=== PATIENT | female | born 1965 | race Caucasian/White ===

== ENCOUNTER 2023-07-04 15:50 | Emergency (ER) | payer OTHER, SELFPAY ==
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
[2023-07-04 16:22] VITALS: BP 150/85; BP 163/103; PULSE 97; PULSE 98; RESP 18; TEMP 36.9; O2SAT 100; O2SAT 99; BMI 29.3
--- OUTSIDE RECORDS SUMMARY | 2023-07-04 16:57 | XMS_ITS | Continuity of Care Document ---
Author Organization [facility] Address [address] [place] [id number]- Care Team Providers Care Make Up Worker Name Role Phone Raya EFFICIENCY EXPERT, Mary Arthur Primary Care Physician Encounter [facility] Date(s): 04/18/20 - 05/18/20 [facility] [address] [place] [address]- Allergies, Adverse Reactions, Alerts Substance Reaction Severity Status aspirin ringing in ears Persistent Severe Active Vicodin vomits Persistent Severe Active Percocet 7.5/325 vomit Persistent Severe Active oxyCODONE Active Immunizations Given and Recorded Vaccine Date Status Refusal Reason influenza virus vaccine, inactivated 1 01/11/18 Gi geri influenza virus vaccine, inactivated 12/05/13 Give n influenza virus vaccine, inactivated 11/29/12 Give n influenza virus vaccine, inactivated 11/24/11 Give n Influenza Inactive (IM) (oldterm) 2 01/10/15 Recor ded tetanus/diphtheria/pertussis, acel(Tdap) 12/11/14 Given Tetanus-Diphth Toxoids, Adult (oldterm) 08/26/ G iven 1Admin Note: Declined 2Result Comment: [05/07/2015] [facility] CeleBREX 200 mg oral capsule 1 capsule = 200 mg, By Mouth, Daily, PRN for pain, # 30 capsule, 4 Refills, Maintenance, 02/05/20 8:17:00 EST, Capsule, [id number], Partial fill upon patient request, 174, cm, 02/05/20 7:47:00 EST, Height, 89.1, kg, 01/12/19 19:27:00 EDT, Dry... Start Date: 02/05/20 Stop Date: 07/04/20 Status: Ordered Centrum By Mouth, Daily, 0 Refills, Maintenance, 11/13/19 8:20:00 EDT Start Date: 11/13/19 Status: Ordered Diflucan 150 mg oral tablet 1 tablet = 150 mg, By Mouth, Once, If symptoms persist may repeat dose in 3 days, # 2 tablet, 1 Refills, Soft Stop, 04/18/20 16:54:00 EST, [facility]acy #[id number], Partial fill upon patient request if theprescription is for a schedule II opioid drug., 174... Start Date: 04/18/20 Status: Ordered Estrace Vaginal Cream 0.1 mg/g See Instructions, 1 Gm Vaginally Daily at bedtime x 1-2 weeks then 1 Gm 1-3 times per week, # 42.5 Gm, 5 Refills, Maintenance, 01/11/19 15:55:41 EDT Start Date: 01/11/19 Status: Ordered Estring 2 mg vaginal ring 1 each = 2 mg, Vaginally, Every 3 months, # 1 each, 0 Refills, Maintenance, 11/13/19 9:12:00 EDT, [id number], 174.5, cm, 11/13/19 8:16:00 EDT, Height, 89.1, kg, 01/12/19 19:27:00 EDT, Dry Weight Start Date: 11/13/19 Stop Date: 02/11/20 Status: Ordered levothyroxine 0.025 mg oral tablet 1 tablet = 25 mcg, By Mouth, Daily, # 90 tablet, 5 Refills, Maintenance, 11/13/19 14:24:00 EDT, Tablet, [facility]/pharm[facility] #[id number], 174.5, cm, 11/13/19 8:16:00 EDT, Height, 89.1, kg, 01/12/19 19:27:00 EDT, Dry Weight Start Date: 11/13/19 Status: Ordered Liletta 52 mg intrauteral device 1 each = 52 mg, Once, Inserted today 01/15/2016, 0 Refills, Maintenance, 01/15/16 11:33:21 Start Date: 01/15/16 Status: Ordered Vitamin C By Mouth, Daily, 0 Refills, Maintenance, 11/13/19 14:24:00 EDT Start Date: 11/13/19 Status: Ordered Problem List Condition Effective Dates Status Health Status Inform ant Endometriosis(Confirmed) Active Heart murmur(Confirmed) Active Hypothyroidism(Confirmed) Active Lumbar degenerative disc disease(Confirmed) 11/30/91 Active Tubular adenoma of colon(Confirmed) 12/02/11 Active Vulvar vestibulitis(Confirmed) Active Social History Social History Type Response Smoking Status Never smoker entered on: 10/29/13 Sex
--- OUTSIDE RECORDS SUMMARY | 2023-07-04 16:57 | XMS_ITS | Continuity of Care Document ---
Author Organization [facility] Address [address] [place] [address]- Care Team Providers Care Trench Shovel Operator Name Role Phone Raya LAYTON, Mary Arthur Primary Care Physician Encounter [facility] Date(s): 05/03/23 - 06/02/23 [facility] [address] [place] [address]- Attending Physician: Willam Sin Admitting Physician: AdmtrWillam Referring Physician: Admtr, Ar8 Allergies, Adverse Reactions, Alerts Substance Reaction Severity Status aspirin ringing in ears Persistent Severe Active Vicodin vomits Persistent Severe Active Percocet 7.5/325 vomit Persistent Severe Active fentaNYL causes severe ileus Active oxyCODONE vomiting Active Immunizations Given and Recorded Vaccine Date Status Refusal Reason SARS-CoV-2 (COVID-19) mRNA BNT-162b2 vac 08/03/20 Recorded SARS-CoV-2 (COVID-19) mRNA BNT-162b2 vac 07/13/20 Recorded influenza virus vaccine, inactivated 1 01/11/18 Gi geri influenza virus vaccine, inactivated 12/05/13 Give n influenza virus vaccine, inactivated 11/29/12 Give n influenza virus vaccine, inactivated 11/24/11 Give n Influenza Inactive (IM) (oldterm) 2 01/10/15 Recor ded tetanus/diphtheria/pertussis, acel(Tdap) 12/11/14 Given Tetanus-Diphth Toxoids, Adult (oldterm) 08/26/04 G iven 1Admin Note: Declined 2Result Comment: [05/07/2015] [facility] benzonatate 100 mg oral capsule 1 capsule = 100 mg, By Mouth, 3 times a day, PRN Cough, # 20 capsule, 0 Refills, Maintenance, 02/07/23 9:29:00 EST, [id number], Partial fill upon patient request if the prescription is for a schedule II opioid drug., 174, cm, 02/07/23 9:10:00... Start Date: 02/07/23 Status: Ordered CeleBREX 200 mg oral capsule 1 capsule = 200 mg, By Mouth, Daily, PRN for pain, # 30 capsule, 4 Refills, Maintenance, 02/05/20 8:17:00 EST, Capsule, [id number], Partial fill upon patient request, 174, cm, 02/05/20 7:47:00 EST, Height, 89.1, kg, 01/12/19 19:27:00 EDT, Dry... Start Date: 02/05/20 Stop Date: 07/04/20 Status: Ordered Centrum By Mouth, Daily, 0 Refills, Maintenance, 11/13/19 8:20:00 EDT Start Date: 11/13/19 Status: Ordered famotidine 40 mg oral tablet 1 tablet = 40 mg, By Mouth, Daily at bedtime, # 30 tablet, 11 Refills, Maintenance, 02/01/22 10:28:00 EST, Tablet, [id number], Partial fill upon patient request if the prescription is for a schedule II opioid drug., 173.2, cm, 02/01/22 10:12:0... Start Date: 02/01/22 Status: Ordered Flonase Allergy Relief 50 mcg/inh nasal spray 1 sprays, Nares, Both, Daily, # 16 Gm, 0 Refills, Maintenance, 02/07/23 9:29:00 EST, [id number], Partial fill upon patient request if the prescription is for a schedule II opioid drug., 174, cm, 02/07/23 9:10:00 EST, Height, 90.3, kg, 09/30/21... Start Date: 02/07/23 Status: Ordered ipratropium nasal 21 mcg/inh spray 2 sprays, Nares, Both, 3 times a day, PRN Nasal Congestion, # 30 mL, 5 Refills, Maintenance, 02/01/22 10:29:00 EST, [place], [id number], Partial fill upon patient request if the prescription isfor a schedule II opioid drug., 2 sprays Nares, Bot... Start Date: 02/01/22 Status: Ordered levothyroxine 0.025 mg oral tablet 1 tablet = 25 mcg, By Mouth, Daily, # 90 tablet, 3 Refills, Maintenance, 03/29/23 7:54:00 EST, Tablet, [facility]/pharmacy #[id number], 174, cm, 03/29/23 7:46:00 EST, Height, 90.3, kg, 09/30/21 15:06:00 EDT, Dry Weight Start Date: 03/29/23 Stop Date: 03/23/24 Status: Ordered PEG-3350 with Electrolytes (Eqv-GoLYTELY) oral powder for reconstitution See Instructions, 1 glass every 15-30 minutes until finished, # 4,000 mL, 0 Refills, Maintenance, 05/30/23 9:29:00 EDT, [facility]/pharmacy #[id number], Partial fill upon patient request if the prescription is for a schedule II opioid drug., 1 glass every 15-30 mi... Start Date: 05/30/23 Status: Ordered Sudafed 12-Hour 120 mg oral tablet, extended release 1 tablet = 120 mg, By Mouth, Every 12 hours, PRN as needed for congestion, # 10 tablet, 0 Refills, Maintenance, 02/07/23 9:29:00 EST, ER Tablet, [facility]/pharmacy #[id number], Partial fill upon patient request if the prescription is for a schedule II opioid drug... Start Date: 02/07/23 Status: Ordered Yuvafem 10 mcg vaginal tablet 1 tablet = 10 mcg, Vaginally, Daily at bedtime, 0 Refills, Maintenance, 10/12/21 15:56:00 EDT, Partial fill upon patient request if the prescription is for a schedule II opioid drug. Start Date: 10/12/21 Status: Ordered Problem List Condition Confirmation Course Effective Dates Status H ealth Status Informant Chronic cough Confirmed Active Endometriosis Confirmed Active Heart murmur Confirmed Active Hypothyroidism Confirmed Active Lumbar degenerative disc disease Confirmed 11/30/91 Active Right shoulder pain Confirmed Active Tubular adenoma of colon Confirmed 12/02/11 Active Vulvar vestibulitis Confirmed Active Social History Social History Type Response Smoking Status Never smoker entered on: 10/29/13 Sex Patient Care team information Care Team Personnel Name: Dori Mendez NP Position: [facility] Associate Professional Member Role: Primary Care Nurse Address: Address: [address] [facility] [place] [address]- [place] Name: Raya LAYTON, Mary Arthur Position: [facility] PCO Associate Professional Member Role: PCP Address: Address: [address] [facility] [place] [address]- Care Team Related Persons Name: GULILAUME GONSALVES Address: [address] [place] [address] Name: JENNIFER LAMA Name: RIKY WEAVER Address: [address] [place] [address]
--- OUTSIDE RECORDS SUMMARY | 2023-07-04 16:57 | XMS_ITS | Continuity of Care Document ---
Author Organization [facility] Address [address] [place] [id number]- Care Team Providers Care Biodiesel Plant Superintendent Name Role Phone Raya PLASTIC PRESS MOLDER, Mary Arthur Primary Care Physician Encounter [facility] [place] [place] Date(s): 02/02/21 - 04/01/21 [facility] [address] [place] [address]- Attending Physician: Mabel Rosa MD Admitting Physician: Shelley NUGENT, Mabel Referring Physician: Tico Biggs MD Allergies, Adverse Reactions, Alerts Substance Reaction Severity [...] Refills, Maintenance, 02/05/20 8:17:00 EST, Capsule, [id number], Partial fill upon patient request, 174, cm, 02/05/20 7:47:00 EST, Height, 89.1, kg, 01/12/19 19:27:00 EDT, Dry... Start Date: 02/05/20 Stop Date: 07/04/20 Status: Ordered Centrum By Mouth, Daily, 0 Refills, Maintenance, 11/13/19 8:20:00 EDT Start Date: 11/13/19 Status: Ordered levothyroxine 0.025 mg oral tablet 1 tablet = 25 mcg, By Mouth, Daily, # 90 tablet, 4 Refills, Maintenance, 02/13/21 16:15:00 EST, Tablet, [facility]/pharmacy #[id number], 175.26, cm, 02/10/21 10:55:00 EST, Height, 99, kg, 12/08/20 23:29:00 EDT, Dry Weight Start Date: 02/13/21 Status: Ordered Liletta 52 mg intrauteral device 1 each = 52 mg, Once, Inserted today 01/15/2016, 0 Refills, Maintenance, 01/15/16 11:33:21 Start Date: 01/15/16 Status: Ordered tiZANidine 2 mg oral tablet 2 mg, 1, tablet, By Mouth, Daily at bedtime, PRN, PRN spasm, # 30 tablet, Refills 0, Tot. Refills 0, Maintenance, as needed for muscle spasm, 01/09/21 7:45:00 EDT, Route to Pharmacy Electronically, [facility]/pharmacy #[id number], Partial fill upon patient request... Start Date: 01/09/21 Stop Date: 02/08/21 Status: Ordered Problem List Condition Effective Dates Status Health Status Inform ant Cough(Confirmed) Active Endometriosis(Confirmed) Active Heart murmur(Confirmed) Active Hypothyroidism(Confirmed) Active Lumbar degenerative disc disease(Confirmed) 11/30/91 Active Obese class I(Confirmed) Active Right shoulder pain(Confirmed) Active Tubular adenoma of colon(Confirmed) 12/02/11 Active Vulvar vestibulitis(Confirmed) Active Social History Social History Type Response Smoking Status Never smoker entered on: 10/29/13 Sex
--- OUTSIDE RECORDS SUMMARY | 2023-07-04 16:58 | XMS_ITS | Continuity of Care Document ---
Author Organization [facility] Address [address], 4[address] [place] [address]- Care Team Providers Care Meat Press Operator Name Role Phone Raya SAFETY PATROL OFFICER, Mary Arthur Primary Care Physician Encounter [facility] [place] Date(s): 11/13/19 - 11/20/19 [facility] [address], 4th [address] [place] [address]- [facility] Attending Physician: Lizeth Kim MD Allergies, Adverse Reactions, Alerts Substance Reaction [...] By Mouth, Daily, PRN for pain, # 10 capsule, 0 Refills, Maintenance, 09/07/19 15:13:00 EDT, Capsule Start Date: 09/07/19 Status: Ordered Centrum By Mouth, Daily, 0 Refills, Maintenance, 11/13/19 8:20:00 EDT Start Date: 11/13/19 Status: Ordered Estrace Vaginal Cream 0.1 mg/g [...] 5 Refills, Maintenance, 11/13/19 14:24:00 EDT, Tablet, [facility]/pharmacy #[id number], 174.5, cm, 11/13/19 8:16:00 EDT, Height, [...] of colon(Confirmed) 12/02/11 Active Vulvar vestibulitis(Confirmed) Active Vital Signs Most recent to oldest [Reference Range]: 1 Height 174.5 cm (11/13/19 8:16 AM) Weight 93.7 kg (11/13/19 8:16 AM) Pulse Rate [55-90 bpm] 80 bpm (11/13/19 8:16 AM) Body Mass Index [18.5-24.99] 30.77 *>HHI* (11/13/19 8:16 AM) Blood Pressure [90-138/55-84 mm Hg] 128/ 85mm Hg (11/13/19 8:16 AM) Blood pressure sites Arm, right (11/13/19 8:16 AM) Social History Social History Type Response Smoking Status Never smoker entered on: 10/29/13 Sex
--- OUTSIDE RECORDS SUMMARY | 2023-07-04 16:58 | XMS_ITS | Continuity of Care Document ---
Author Organization [facility] Address [address] [place] [address]- Care Team Providers Care Governor Assembler Hydraulic Name Role Phone Raya EGG GRADER, Mary Arthur Primary Care Physician En[place] [facility] [place] Date(s): 07/10/20 - 08/09/20 [facility] [address] [place] [address]- Attending Physician: Admtr, Ar8 Allergies, Adverse Reactions, Alerts [...] Refills, Maintenance, 02/05/20 8:17:00 EST, Capsule, [id number], Partial fill upon patient request, 174, cm, [...] 15:55:41 EDT Start Date: 01/11/19 Status: Ordered levothyroxine 0.025 mg oral tablet 1 tablet = 25 mcg, By Mouth, Daily, # 90 tablet, 5 Refills, Maintenance, 11/13/19 14:24:00 EDT, Tablet, [facility]/pharmacy #[id number], 174.5, cm, 11/13/19 8:16:00 EDT, [...]
--- OUTSIDE RECORDS SUMMARY | 2023-07-04 16:58 | XMS_ITS | Continuity of Care Document ---
Author Organization [facility] Address [address] [place] [address]- Care Team Providers Care Cableman Name Role Phone Raya LAYTON, Mary Arthur Primary Care Physician En[place] [facility] [place] Date(s): 11/20/20 - 11/27/20 [facility] [address] [place] [address]- Encounter Diagnosis Hypothyroidism(Discharge Diagnosis) - 11/20/20 Cervical stenosis of spine(Discharge Diagnosis) - 11/20/20 Attending Physician: Jaspreet Jacinto MD Referring Physician: Tico Biggs MD Allergies, Adverse Reactions, Alerts Substance Reaction Severity Status aspirin ringing in ears Persistent Severe Active Vicodin vomits Persistent Severe Active Percocet 7.5/325 vomit Persistent Severe Active fentaNYL Active oxyCODONE Active Immunizations Given and Recorded [...] 4 Refills, Maintenance, 02/05/20 8:17:00 EST, Capsule, [facility]/pharmacy #[id number], Partial fill upon patient request, 174, cm, [...] mcg, By Mouth, Daily, # 90 tablet, 0 Refills, Maintenance, 11/21/20 7:39:00 EDT, Tablet, [facility]/pharmacy #[id number], 174, cm, 11/20/20 7:16:00 EDT, Height, 89.1, kg, 01/12/19 19:27:00 EDT, Dry Weight Start Date: 11/21/20 Status: Ordered Liletta 52 mg intrauteral device 1 each = 52 mg, Once, Inserted today 01/15/2016, 0 Refills, Maintenance, 01/15/16 11:33:21 Start Date: 01/15/16 Status: Ordered Problem List Condition Effective Dates Status Health Status Inform ant Endometriosis(Confirmed) Active Heart murmur(Confirmed) Active Hypothyroidism(Confirmed) Active Lumbar degenerative disc disease(Confirmed) 11/30/91 Active Tubular adenoma of colon(Confirmed) 12/02/11 Active Vulvar vestibulitis(Confirmed) Active Diagnosis Diagnosis Type Effective Dates Health Status Clinical Service Informant Hypothyroidism Discharge Diagnosis 11/20/20 Cervical stenosis of spine Discharge Diagnosis 11/20/20 Vital Signs Most recent to oldest [Reference Range]: 1 Height 174 cm (11/20/20 7:16 AM) Weight 99 kg (11/20/20 7:16 AM) Oxygen Saturation [94-100 %] 98 % (11/20/20 7:16 AM) Pulse Rate [55-90 bpm] 75 bpm (11/20/20 7:16 AM) Body Mass Index [18.5-24.99] 32.7 *>HHI* (11/20/20 7:16 AM) Blood Pressure [90-138/55-84 mm Hg] 115/ 84mm Hg (11/20/20 7:16 AM) Mode of Delivery (Oxygen) Room air (11/20/20 7:16 AM) Blood pressure sites Arm, left (11/20/20 7:16 AM) Weight Obtained Via Standing scale (11/20/20 7:16 AM) Social History Social History Type Response Smoking Status Never smoker entered on: 10/29/13 Sex
--- OUTSIDE RECORDS SUMMARY | 2023-07-04 16:58 | XMS_ITS | Continuity of Care Document ---
Author Organization [facility] Address [address], 4t [address] [place] [address]- Care Team Providers Care Design Quality Engineer Name Role Phone Raya LAYTON, Mary Arthur Primary Care Physician Encounter [facility] [place] Date(s): 12/08/21 - 12/15/21 [facility] [address], 4th [address] [place] [address]- Attending Physician: Lizeth Kim MD Allergies, Adverse [...] Daily, # 90 tablet, 4 Refills, Maintenance, 12/08/21 9:25:00 EDT, Tablet, [facility]/pharmacy #[id number], 173.2, cm, 12/08/21 9:15:00 EDT, Height, 90.3, kg, 09/30/21 15:06:00 EDT, Dry Weight Start Date: 12/08/21 Status: Ordered Liletta 52 mg intrauteral device 1 each = 52 mg, Once, Inserted today 01/15/2016, 0 Refills, Maintenance, 01/15/16 11:33:21 Start Date: 01/15/16 Status: Ordered Yuvafem 10 mcg vaginal tablet 1 tablet = 10 mcg, Vaginally, Daily at bedtime, 0 Refills, Maintenance, 10/12/21 15:56:00 EDT, Partial fill upon patient request if the prescription is for a schedule II opioid drug. Start Date: 10/12/21 Status: Ordered Yuvafem 10 mcg vaginal tablet 1 tablet = 10 mcg, Vaginally, Every Tuesday and , # 24 tablet, 6 Refills, Maintenance, 12/08/21 9:20:00 EDT, [id number], Partial fill upon patient request if the prescription is for a schedule II opioid drug., 173.2, cm, 12/08/21 9:15:0... Start Date: 12/08/21 Status: Ordered Problem List Condition Confirmation Course Effective Dates Status H ealth Status Informant Cough Confirmed Active Endometriosis Confirmed Active Heart murmur Confirmed Active Hypothyroidism Confirmed Active Lumbar degenerative disc disease Confirmed 11/30/91 Active Right shoulder pain Confirmed Active Tubular adenoma of colon Confirmed 12/02/11 Active Vulvar vestibulitis Confirmed Active Vital Signs Most recent to oldest [Reference Range]: 1 Height 173.2 cm (12/08/21 9:15 AM) Weight 86.5 kg (12/08/21 9:15 AM) Pulse Rate [55-90 bpm] 73 bpm (12/08/21 9:15 AM) Body Mass Index [18.5-24.99 kg/m2] 28.84 kg/m2 *H* (12/08/21 9:15 AM) Diastolic Blood Pressure [55-84 mm Hg] 7 8 mm Hg (12/08/21 9:15 AM) Blood pressure sites Arm, right (12/08/21 9:15 AM) Social History Social History Type Response Smoking Status Never smoker entered on: 10/29/13 Sex Patient Care team information Personnel Name: Raya LAYTON, Mary Arthur Address: [address] [place], [place] [address]
--- OUTSIDE RECORDS SUMMARY | 2023-07-04 16:58 | XMS_ITS | Continuity of Care Document ---
Author Organization [facility] Address [address] [place] [address]- Care Team Providers Care Sidehand Name Role Phone aRya SYSTEMATIC THEOLOGY PROFESSOR, Mary Arthur Primary Care Physician En[place] [facility] [place] Date(s): 08/03/21 - 09/02/21 [facility] [address] [place], [place] [address] Allergies, Adverse Reactions, Alerts Substance Reaction Severity Status aspirin ringing in ears Persistent Severe Active Vicodin vomits Persistent Severe Active Percocet 7.5/325 vomit Persistent Severe Active oxyCODONE vomiting Active fentaNYL causes severe ileus Active Immunizations Given and Recorded Vaccine Date [...] Status: Ordered Diflucan 150 mg oral tablet See Instructions, 1 tablet By Mouth Once, repeat on day 3 and day 7., # 3 tablet, 0 Refills, Soft Stop, 08/16/21 15:26:00 EDT, Tablet, [facility]/pharmacy #[id number], Partial fill upon patient request if the prescription is for a schedule II opioid drug., 175, cm... Start Date: 08/16/21 Status: Ordered levothyroxine 0.025 mg oral tablet 1 tablet = 25 mcg, By Mouth, Daily, # 90 tablet, 4 Refills, Maintenance, 02/13/21 16:15:00 EST, Tablet, [facility]/pharmacy #[id number], 175.26, cm, 02/10/21 10:55:00 EST, Height, 99, kg, 12/08/20 23:29:00 EDT, Dry Weight Start Date: 02/13/21 Status: Ordered Liletta 52 mg intrauteral device 1 each = 52 mg, Once, Inserted today 01/15/2016, 0 Refills, Maintenance, 01/15/16 11:33:21 Start Date: 01/15/16 Status: Ordered omeprazole 20 mg oral enteric coated capsule 1 capsule = 20 mg, By Mouth, Daily at supper, # 30 capsule, 3 Refills, Maintenance, 04/20/21 10:35:00 EST, EC Capsule, [facility]/pharmacy #[id number], Partial fill upon patient request if the prescription is fora schedule II opioid drug., 175, cm, 04/20/21 10:05... Start Date: 04/20/21 Status: Ordered tiZANidine 2 mg oral tablet 2 mg, 1, tablet, By Mouth, Daily at bedtime, PRN, PRN spasm, # 30 tablet, Refills 0, Tot. Refills 0, Maintenance, as needed for muscle spasm, 01/09/21 7:45:00 EDT, Route to Pharmacy Electronically, [facility]/pharmacy #[id number], Partial fill upon patient request... Start Date: 01/09/21 Stop Date: 02/08/21 Status: Ordered Vagifem 10 mcg vaginal tablet 1 tablet = 10 mcg, Vaginally, Daily at bedtime, Insert one tablet daily x 2 weeks then twice weekly, # 18 tablet, 11 Refills, Maintenance, 07/01/21 16:26:00 EDT, [facility]/pharmacy #[id number], Partial fill uponpatient request if the prescription is for a schedu... Start Date: 07/01/21 Stop Date: 06/26/22 Status: Ordered Problem List Condition Effective Dates [...]
--- OUTSIDE RECORDS SUMMARY | 2023-07-04 16:58 | XMS_ITS | Continuity of Care Document ---
Author Organization [facility] Address [address], [address] [place] [address]- Care Team Providers Care Infrastructure Tech Name Role Phone Raya SR SOLUTIONS CONSULTANT, Mary Arthur Primary Care Physician [place] [facility] [place] - 04/02/22 [employer] [employer] [facility] [employer] [facility] [address], 4th [place] [address]- Attending Physician: Willam Sin Admitting Physician: Willam Sin Referring Physician: AdmtrWillam Allergies, Adverse Reactions, Alerts Substance Reaction Severity [...] influenza virus vaccine, inactivated 1 01/11/18 Gi egri influenza virus vaccine, inactivated 12/05/13 Give n [...] 02/01/22 10:12:0... Start Date: 02/01/22 Status: Ordered ipratropium nasal 21 mcg/inh spray 2 sprays, Nares, Both, 3 times a day, PRN Nasal Congestion, # 30 mL, 5 Refills, Maintenance, 02/01/22 10:29:00 EST, [place], [id number], Partial fill upon patient request if the prescription isfor a schedule II opioid drug., 2 sprays Nares, Bot... Start Date: 02/01/22 Status: Ordered levothyroxine 0.025 mg oral tablet 1 tablet = 25 mcg, By Mouth, Daily, # 90 tablet, 4 Refills, Maintenance, 12/08/21 9:25:00 EDT, Tablet, [id number], 173.2, cm, 12/08/21 9:15:00 EDT, Height, 90.3, kg, 09/30/21 15:06:00 EDT, Dry Weight Start Date: 12/08/21 Status: Ordered Yuvafem 10 mcg vaginal tablet [...] Team Personnel Name: Dori Mendez NP Position: [facility] Associate Professional Member Role: Primary Care Nurse Address: Address: [address] [place] [address] Trauma [place] [address]- Name: Mary Dos Santos NP Position: [facility] PCO Associate Professional Member Role: PCP Address: Address: [address] [place] [address] 3rd [place] [address]- Care Team Related Persons Name: GUILLAUME GONSALVES Address: home [address] [place] [address] Name: JENNIFER LAMA Name: RIKY WEAVER Address: home [address] [place] [address]
--- OUTSIDE RECORDS SUMMARY | 2023-07-04 16:58 | XMS_ITS | Continuity of Care Document ---
Author Organization [facility] Address [address] [place] [address], [address] [address]- Care Team Providers Care Scientific Process Operator Name Role Phone Raya LAYTON, Mary Arthur Primary Care Physician Encounter [facility] [place] Date(s): 08/19/21 - 09/18/21 [facility] [employer] [facility] [address], 4th [place] [address]- Attending Physician: Admtr, Wilbert8 Admitting Physician: Admtr, Ar8 Referring Physician: Admtr, Ar8 Allergies, Adverse Reactions, [...] Refills, Soft Stop, 08/16/21 15:26:00 EDT, Tablet, [facility]/pharmacy #[id number], Partial fill upon patient request if the prescription is for a schedule II opioid drug., 175, cm... Start Date: 08/16/21 Status: Ordered levothyroxine 0.025 mg oral tablet 1 tablet = 25 mcg, By Mouth, Daily, # 90 tablet, 4 Refills, Maintenance, 02/13/21 16:15:00 EST, Tablet, [facility]/pharmacy #[id number], 175.26, cm, 02/10/21 10:55:00 EST, Height, [...] Refills, Maintenance, 04/20/21 10:35:00 EST, EC Capsule, [facility]/pharmacy #[id number], Partial fill upon patient request if the prescription is fora schedule II opioid drug., 175, cm, 04/20/21 10:05... Start Date: 04/20/21 Status: Ordered tiZANidine 2 mg oral tablet 2 mg, 1, tablet, By Mouth, Daily at bedtime, PRN, PRN spasm, # 30 tablet, Refills 0, Tot. Refills 0, Maintenance, as needed for muscle spasm, 01/09/21 7:45:00 EDT, Route to Pharmacy Electronically, [facility]/pharmacy #[id number], Partial fill upon patient request... Start Date: 01/09/21 Stop Date: 02/08/21 Status: Ordered Vagifem 10 mcg vaginal tablet 1 tablet = 10 mcg, Vaginally, Daily at bedtime, Insert one tablet daily x 2 weeks then twice weekly, # 18 tablet, 11 Refills, Maintenance, 07/01/21 16:26:00 EDT, [facility]/pharmacy #[id number], Partial fill uponpatient request if the prescription [...]
--- OUTSIDE RECORDS SUMMARY | 2023-07-04 16:58 | XMS_ITS | Continuity of Care Document ---
Author Organization [facility] Address [address] [place] [address]- Care Team Providers Care Commercial Banker Name Role Phone Raya LAYTON, Mary Arthur Primary Care Physician Encounter [facility] [place] Date(s): 06/24/20 - 07/24/20 [facility] [address] [place] [address]- Allergies, Adverse Reactions, Alerts Substance Reaction Severity [...] Refills, Maintenance, 02/05/20 8:17:00 EST, [facility]aps[facility], [id number], Partial fill upon patient request, 174, cm, [...] 5 Refills, Maintenance, 11/13/19 14:24:00 EDT, Tablet, [id number], 174.5, cm, 11/13/19 8:16:00 EDT, [...]
--- OUTSIDE RECORDS SUMMARY | 2023-07-04 16:58 | XMS_ITS | Continuity of Care Document ---
Author Organization [facility] Address [address] [place] [address]- Care Team Providers Care Financial Systems Manager Name Role Phone Raya LAYTON, Mary Arthur Primary Care Physician En[place] [facility] [place] Date(s): 06/22/20 - 07/22/20 [facility] [address] [place] [address]- Attending Physician: Willam Sin Admitting Physician: Willam [...] Refills, Maintenance, 02/05/20 8:17:00 EST, [place], [id number], Partial fill upon patient request, 174, cm, [...] 5 Refills, Maintenance, 11/13/19 14:24:00 EDT, Tablet, [facility]/pharmacy #[id number], 174.5, cm, 11/13/19 8:16:00 [...]
--- OUTSIDE RECORDS SUMMARY | 2023-07-04 16:58 | XMS_ITS | Continuity of Care Document ---
Author Organization [facility] Address [address] [place], [place] [address]marylin mcdonald, [address] [place] [address]- Care Team Providers Care Meat Trimmer Name Role Phone Raya ICE CUTTER, Mary Arthur Primary Care Physician Encounter [facility] [place] Date(s): 11/18/20 - 11/25/20 [facility] [address] [place] [address] Drive, [address] [place] [address]- Attending Physician: Tico Biggs MD Allergies, Adverse Reactions, [...] 0 Refills, Maintenance, 11/21/20 7:39:00 EDT, Tablet, [facility]/pharmacy #[id number], 174, cm, 11/20/20 7:16:00 [...] oldest [Reference Range]: 1 Height 174 cm (11/18/20 8:52 AM) Weight 95.5 kg (11/18/20 8:52 AM) Body Mass Index [18.5-24.99] 31.54 *>HHI* (11/18/20 8:52 AM) Social History Social History Type Response Smoking Status Never smoker entered on: 10/29/13 Sex
--- OUTSIDE RECORDS SUMMARY | 2023-07-04 16:58 | XMS_ITS | Continuity of Care Document ---
Author Organization [facility] Address Unknown Care Team Providers Care Director Hardware Name Role Phone Raya LAYTON, Mary Arthur Primary Care Physician [place] [facility] [place] 02/13/21 - 03/15/21 [facility] Allergies, Adverse Reactions, Alerts Substance Reaction Severity [...] Refills, Maintenance, 02/05/20 8:17:00 EST, [facility], [id number], Partial fill upon patient request, 174, cm, 02/05/20 7:47:00 EST, Height, 89.1, kg, 01/12/19 19:27:00 EDT, Dry... Start Date: 02/05/20 Stop Date: 07/04/20 Status: Ordered Centrum By Mouth, Daily, 0 Refills, Maintenance, 11/13/19 8:20:00 EDT Start Date: 11/13/19 Status: Ordered levothyroxine 0.025 mg oral tablet 1 tablet = 25 mcg, By Mouth, Daily, # 90 tablet, 4 Refills, Maintenance, 02/13/21 16:15:00 EST, Tablet, [facility]/pharmacy #[id number], 175.26, cm, 02/10/21 10:55:00 EST, Height, 99, [...] 01/09/21 7:45:00 EDT, Route to Pharmacy Electronically, [facility]/pharmacy #[id number], Partial fill upon patient request... Start Date: [...]
--- OUTSIDE RECORDS SUMMARY | 2023-07-04 16:58 | XMS_ITS | Continuity of Care Document ---
Author Organization [facility] Address [address] [place] [address]- Care Team Providers Care Global Upstream Marketing Manager Name Role Phone Raya LAYTON, Mary Arthur Primary Care Physician En[facility] [place] Date(s): 09/03/22 - 10/03/22 [facility] [address] [place] [address]- Attending Physician: Willam Sin Admitting Physician: AdmtrWillam [...] 4 Refills, Maintenance, 02/05/20 8:17:00 EST, Capsule, [facility]/pharmacy #[id number], Partial fill upon patient request, 174, [...] 11 Refills, Maintenance, 02/01/22 10:28:00 EST, Tablet, [facility]/pharmacy #[id number], Partial fill upon patient request if the prescription is for a schedule II opioid drug., 173.2, cm, 02/01/22 10:12:0... Start Date: 02/01/22 Status: Ordered fluconazole 150 mg oral tablet 1 tablet = 150 mg, By Mouth, Once, # 1 tablet, 0 Refills, Soft Stop, 09/03/22 9:39:00 EDT, Tablet, [facility]/pharmacy #[id number], Partial fill upon patient request if the prescription is for a schedule II opioid drug., 174, cm, 09/03/22 9:19:00 EDT, Height, 90.3... Start Date: 09/03/22 Status: Ordered ipratropium nasal 21 mcg/inh spray 2 sprays, Nares, Both, 3 times a day, PRN Nasal Congestion, # 30 mL, 5 Refills, Maintenance, 02/01/22 10:29:00 EST, [place], [facility]/pharmacy #[id number], Partial fill upon patient request if the prescription isfor a schedule II opioid drug., 2 sprays Nares, Bot... Start Date: 02/01/22 Status: Ordered levothyroxine 0.025 mg oral tablet 1 tablet = 25 mcg, By Mouth, Daily, # 90 tablet, 4 Refills, Maintenance, 12/08/21 9:25:00 EDT, Tablet, [facility]/pharmacy #[id number], 173.2, cm, 12/08/21 9:15:00 EDT, Height, [...] Team Personnel Name: Dori Mendez NP Position: [facility] Associate Professional Member Role: Primary Care Nurse Address: Address: [address] [place] [address] Trauma and [place] [address]- Name: Mary Dos Santos NP Position: [facility] PCO Associate Professional Member Role: PCP Address: Address: [address] [place] [address] 3rd [place] [address]- Care Team Related Persons Name: GUILLAUME GONSALVES Address: home [address] [place] [address] Name: JENNIFER LAMA Name: RIKY WEAVER Address: [address] [place] [address]
--- OUTSIDE RECORDS SUMMARY | 2023-07-04 16:58 | XMS_ITS | Continuity of Care Document ---
Author Organization [facility] Address [address] [place] [address]- Care Team Providers Care Obstetric Assistant Name Role Phone Raya LAYTON, Mary Arthur Primary Care Physician [place] [facility] [place] - 06/09/[address] [address]- Encounter Diagnosis Mixed incontinence(Final) - Discharge Disposition: A-D/C Home Attending Physician: Ryan Tucker MD Admitting Physician: Not on Staff, Admitting MD Referring Physician: Ryan Tucker MD Allergies, Adverse Reactions, Alerts Substance Reaction [...] mL, 5 Refills, Maintenance, 02/01/22 10:29:00 EST, [place], [id number], Partial fill upon patient request if the prescription isfor a schedule II opioid drug., 2 sprays Nares, Bot... Start Date: 02/01/22 Status: Ordered levothyroxine 0.025 mg oral tablet 1 tablet = 25 mcg, By Mouth, Daily, # 90 tablet, 3 Refills, Maintenance, 03/29/23 7:54:00 EST, Tablet, [facility]/pharmacy #[id number], 174, cm, 03/29/23 7:46:00 EST, Height, 90.3, kg, 09/30/21 15:06:00 EDT, Dry Weight Start Date: 03/29/23 Stop Date: 03/23/24 Status: Ordered PEG-3350 with Electrolytes (Eqv-GoLYTELY) oral powder for reconstitution See Instructions, 1 glass every 15-30 minutes until finished, # 4,000 mL, 0 Refills, Maintenance, 05/30/23 9:29:00 EDT, [facility]/pharmacy #[id number], Partial fill upon patient request if the prescription is for a schedule II opioid drug., 1 glass every 15-30 mi... Start Date: 05/30/23 Status: Ordered Sudafed 12-Hour 120 mg oral tablet, extended release 1 tablet = 120 mg, By Mouth, Every 12 hours, PRN as needed for congestion, # 10 tablet, 0 Refills, Maintenance, 02/07/23 9:29:00 EST, [place] Tablet, [facility]/pharmacy #[id number], Partial fill upon patient request if [...] Response Smoking Status Never smoker entered on: 8/18/14 Sex Patient Care team information Care Team Personnel Name: Dori Mendez NP Position: [facility] Associate Professional Member Role: Primary Care Nurse Address: Address: [address] [place] [address] Trauma and [place] [address]- [place] Name: Mary Dos Santos NP Position: [facility] PCO Associate Professional Member Role: PCP Address: Address: [address] [place] [address] [address]rd [place] [address]- Care Team Related Persons Name: GUILLAUME GONSALVES Address: [address] [place] [address] Name: JENNIFER LAMA Name: RIKY WEAVER Address: [address] [place] [address]
--- OUTSIDE RECORDS SUMMARY | 2023-07-04 16:58 | XMS_ITS | Continuity of Care Document ---
Author Organization [facility] Adult Address [address] [place] [address]- Care Team Providers Care Cat Scan Technologist Name Role Phone Raya GANG HEAD SAW OPERATOR, Mary Arthur Primary Care Physician [place] [facility] [place] - 05/18/[address] [facility] [address] [place] [address]- Referring Physician: Lorna Patel Allergies, Adverse Reactions, Alerts Substance Reaction Severity [...] Refills, Maintenance, 02/05/20 8:17:00 EST, C[facility], [id number], Partial fill upon patient request, 174, cm, [...] 1 Refills, Soft Stop, 04/18/20 16:54:00 EST, [facility]/pharmacy #[id number], Partial fill upon patient request if [...] each, 0 Refills, Maintenance, 11/13/19 9:12:00 EDT, [facility]/pharmacy #[id number], 174.5, cm, 11/13/19 8:16:00 EDT, Height, 89.1, kg, 01/12/19 19:27:00 EDT, Dry Weight Start Date: 11/13/19 Stop Date: 02/11/20 Status: Ordered levothyroxine 0.025 mg oral tablet 1 tablet = 25 mcg, By Mouth, Daily, # 90 tablet, 5 Refills, Maintenance, 11/13/19 14:24:00 EDT, Tablet, [facility]/pharmacy #[id number], 174.5, cm, 11/13/19 8:16:00 EDT, Height, [...]
--- OUTSIDE RECORDS SUMMARY | 2023-07-04 16:58 | XMS_ITS | Continuity of Care Document ---
Author Organization [facility] Address [address] [place], [place] [address]marylin mcdonald, [address] [place] [address]- Care Team Providers Care Technical Proposal Writer Name Role Phone Raya COST ESTIMATING MANAGER, Mary Arthur Primary Care Physician [place] [facility] [place] - 03/01/21 [facility] [address] [place] [address] Drive, [address] [place] [address]- Allergies, Adverse Reactions, Alerts Substance Reaction Severity [...] Refills, Maintenance, 02/05/20 8:17:00 EST, Capsule, [id number], Partial fill upon patient request, 174, cm, [...]
--- OUTSIDE RECORDS SUMMARY | 2023-07-04 16:58 | XMS_ITS | Continuity of Care Document ---
Author Organization [facility] Address [address] [place] [address]- Care Team Providers Care Thermodynamics Professor Name Role Phone Raya LAYTON, Mary Arthur Primary Care Physician [place] [facility] [place] - 10/17/19 [facility] [address] [place] [address]- [facility] Allergies, Adverse Reactions, Alerts Substance Reaction Severity [...] EDT, Capsule Start Date: 09/07/19 Status: Ordered Estrace Vaginal Cream 0.1 mg/g See Instructions, 1 Gm Vaginally Daily at bedtime x 1-2 weeks then 1 Gm 1-3 times per week, # 42.5 Gm, 5 Refills, Maintenance, 01/11/19 15:55:41 EDT Start Date: 01/11/19 Status: Ordered fluconazole 150 mg oral tablet 1 tablet = 150 mg, By Mouth, Once, for symptoms of yeast infection, # 1 tablet, 0 Refills, Soft Stop, 05/25/19 12:07:00 EDT, Tablet, [id number], 174.5, cm, 03/02/19 16:21:00 EST, Height, 89.1, kg, 01/12/19 19:27:00 EDT, Dry Weight Start Date: 05/25/19 Status: Ordered levothyroxine 0.025 mg oral tablet 1 tablet = 25 mcg, By Mouth, Daily, # 90 tablet, 4 Refills, Maintenance, 10/05/18 9:24:30 EDT Start Date: 10/05/18 Stop Date: 12/29/19 Status: Ordered Liletta 52 mg intrauteral device [...]
--- OUTSIDE RECORDS SUMMARY | 2023-07-04 16:58 | XMS_ITS | Continuity of Care Document ---
Author Organization [facility] Address [address] [place], [place] [address]marylin mcdonald, [address] [place] [address]- Care Team Providers Care Relations Liaison Name Role Phone Raya MANAGER GRANT, Mary Arthur Primary Care Physician [place] [facility] [place] [facility] [place]25[place]20 - 12/25/20 [facility] [address] [place] [address] Drive, [address] [place] [address]- Allergies, Adverse Reactions, Alerts Substance Reaction Severity [...] Refills, Maintenance, 02/05/20 8:17:00 EST, Capsule, [id number], Partial fill upon patient request, 174, cm, 02/05/20 7:47:00 EST, Height, 89.1, kg, 01/12/19 19:27:00 EDT, Dry... Start Date: 02/05/20 Stop Date: 07/04/20 Status: Ordered Centrum By Mouth, Daily, 0 Refills, Maintenance, 11/13/19 8:20:00 EDT Start Date: 11/13/19 Status: Ordered levothyroxine 0.025 mg oral tablet 1 tablet = 25 mcg, By Mouth, Daily, # 90 tablet, 0 Refills, Maintenance, 11/21/20 7:39:00 EDT, Tablet, [facility]/pharmacy #[id number], 174, cm, 11/20/20 7:16:00 EDT, Height, 89.1, kg, 01/12/19 19:27:00 EDT, Dry Weight Start Date: 11/21/20 Status: Ordered Liletta 52 mg intrauteral device 1 each = 52 mg, Once, Inserted today 01/15/2016, 0 Refills, Maintenance, 01/15/16 11:33:21 Start Date: 01/15/16 Status: Ordered tiZANidine 2 mg oral tablet 2 mg, 1, tablet, By Mouth, Every 8 hours, PRN, PRN spasm, # 21 tablet, Refills 0, Tot. Refills 0, Maintenance, as needed for muscle spasm, 12/09/20 8:47:00 EDT, Print Requisition, Partial fill upon patient request if the prescription is for a schedule... Start Date: 12/09/20 Stop Date: 12/16/20 Status: Ordered Problem List Condition Effective Dates Status Health Status Inform ant Endometriosis(Confirmed) Active Heart murmur(Confirmed) Active Hypothyroidism(Confirmed) Active Lumbar degenerative disc disease(Confirmed) 11/30/91 Active Tubular adenoma of colon(Confirmed) 12/02/11 Active Vulvar vestibulitis(Confirmed) Active Social History Social History Type Response Smoking Status Never smoker entered on: 10/29/13 Sex
--- OUTSIDE RECORDS SUMMARY | 2023-07-04 16:58 | XMS_ITS | Continuity of Care Document ---
Author Organization [facility] Address [address] [place] [address]- Care Team Providers Care Conservation Engineer Name Role Phone Raya RESTAURANT HOURLY MANAGER, Mary Arhtur Primary Care Physician Encounter [facility] Date(s): 01/12/21 - 02/11/[address] [address]- Allergies, Adverse Reactions, Alerts Substance Reaction Severity [...] Refills, Maintenance, 02/05/20 8:17:00 EST, Capsule, [id number], Partial fill upon patient request, 174, cm, 02/05/20 7:47:00 EST, Height, 89.1, kg, 01/12/19 19:27:00 EDT, Dry... Start Date: 02/05/20 Stop Date: 07/04/20 Status: Ordered Centrum By Mouth, Daily, 0 Refills, Maintenance, 11/13/19 8:20:00 EDT Start Date: 11/13/19 Status: Ordered levothyroxine 0.025 mg oral tablet 1 tablet = 25 mcg, By Mouth, Daily, # 90 tablet, 0 Refills, Maintenance, 11/21/20 7:39:00 EDT, Tablet, [facility]/pharmacy #[id number], 174, cm, 11/20/20 7:16:00 EDT, [...] 01/09/21 7:45:00 EDT, Route to Pharmacy Electronically, [facility]/pharmacy #[id number], Partial fill upon patient request... Start Date: 01/09/21 Stop Date: 02/08/21 Status: Ordered Problem List Condition Effective Dates Status Health Status Inform ant Cough(Confirmed) Active Endometriosis(Confirmed) Active Heart murmur(Confirmed) Active Hypothyroidism(Confirmed) Active Lumbar degenerative disc disease(Confirmed) 11/30/91 Active Right shoulder pain(Confirmed) Active Tubular adenoma of colon(Confirmed) 12/02/11 Active Vulvar vestibulitis(Confirmed) Active Social History Social History Type Response Smoking Status Never smoker entered on: 10/29/13 Sex
--- OUTSIDE RECORDS SUMMARY | 2023-07-04 16:58 | XMS_ITS | Continuity of Care Document ---
Author Organization [facility] Address [address] [facility] [address], [address]t [address] [place] [address]- Care Team Providers Care Assurance Senior Manager Name Role Phone Raya AUTOMOBILE BUMPER STRAIGHTENER, Mary Arthur Primary Care Physician Encounter [facility] Date(s): 04/15/20 - 05/15/20 [facility] [address], 4th [address] [place] [address]- Allergies, Adverse Reactions, Alerts Substance Reaction Severity [...] Refills, Maintenance, 02/05/20 8:17:00 EST, Capsule, [id number], Partial fill upon patient request, 174, cm, [...] 1 Refills, Soft Stop, 04/18/20 16:54:00 EST, [facility]/pharmacy #[id number], Partial fill upon patient request [...] 5 Refills, Maintenance, 11/13/19 14:24:00 EDT, Tablet, [facility]/pharmacy #[id number], 174.5, cm, 11/13/19 8:16:00 EDT, [...]
--- OUTSIDE RECORDS SUMMARY | 2023-07-04 16:58 | XMS_ITS | Continuity of Care Document ---
Author Organization [facility] Address [address] [place] [address]- Care Team Providers Care Icebox Worker Name Role Phone Raya LAYTON, Mary Arthur Primary Care Physician [place] [facility] [place] Date(s): 08/16/21 - 08/23/21 [facility] [address] [place] [address]- Encounter Diagnosis Strep pharyngitis(Discharge Diagnosis) - 08/16/21 Attending Physician: Alexis Page DO Referring Physician: Mary Dos Santos NP Allergies, Adverse Reactions, Alerts Substance Reaction Severity [...] Note: Declined 2Result Comment: [05/07/2015] [facility] amox[facility] 875 mg oral tablet 1 tablet = 875 mg, By Mouth, 2 times a day, for 10 days, # 20 tablet, 0 Refills, Acute 08/26/21 15:26:00 EDT, 08/16/21 15:26:00 EDT, Tablet, [facility]/pharmacy #[id number], Partial fill upon patient request if the prescription is for a schedule II opioid drug., 1... Start Date: 08/16/21 Stop Date: 08/26/21 Status: Ordered CeleBREX 200 mg oral capsule [...] Refills, Soft Stop, 08/16/21 15:26:00 EDT, Tablet, [id number], Partial fill upon patient request if the prescription is for a schedule II opioid drug., 175, cm... Start Date: 08/16/21 Status: Ordered levothyroxine 0.025 mg oral tablet 1 tablet = 25 mcg, By Mouth, Daily, # 90 tablet, 4 Refills, Maintenance, 02/13/21 16:15:00 EST, Tablet, [id number], 175.26, cm, 02/10/21 10:55:00 EST, Height, [...] Refills, Maintenance, 04/20/21 10:35:00 EST, EC Capsule, [facility]/pharmacy #[id number], Partial fill upon patient request if the prescription is fora schedule II opioid drug., 175, cm, 04/20/21 10:05... Start Date: 04/20/21 Status: Ordered tiZANidine 2 mg oral tablet 2 mg, 1, tablet, By Mouth, Daily at bedtime, PRN, PRN spasm, # 30 tablet, Refills 0, Tot. Refills 0, Maintenance, as needed for muscle spasm, 01/09/21 7:45:00 EDT, Route to Pharmacy Electronically, [facility]/pharmacy #[id number], Partial fill upon patient request... Start Date: 01/09/21 Stop Date: 02/08/21 Status: Ordered Vagifem 10 mcg vaginal tablet 1 tablet = 10 mcg, Vaginally, Daily at bedtime, Insert one tablet daily x 2 weeks then twice weekly, # 18 tablet, 11 Refills, Maintenance, 07/01/21 16:26:00 EDT, [facility]/pharmacy #[id number], Partial fill uponpatient request if the prescription [...] Effective Dates Health Status Clinical Service Informant Strep pharyngitis Discharge Diagnosis 08/16/21 Vital Signs Most recent to oldest [Reference Range]: 1 Height 175 cm (08/16/21 3:02 PM) Oxygen Saturation [94-100 %] 100 % (08/16/21 3:02 PM) Pulse Rate [55-90 bpm] 71 bpm (08/16/21 3:02 PM) Blood Pressure [90-138/55-84 mm Hg] 135/ 92mm Hg (08/16/21 3:02 PM) Temperature [96.8-100.4 DegF] 98.1 DegF (08/16/21 3:02 PM) Mode of Delivery (Oxygen) Room air (08/16/21 3:02 PM) Blood pressure sites Arm, right (08/16/21 3:02 PM) Temperature Route Temporal (08/16/21 3:02 PM) Social History Social History Type Response Smoking Status Never smoker entered on: 10/29/13 Sex
--- OUTSIDE RECORDS SUMMARY | 2023-07-04 16:58 | XMS_ITS | Continuity of Care Document ---
Author Organization [facility] Adult Address [address] [place] [address]- Care Team Providers Care Asphalt Distributor Operator Name Role Phone Raya LAYTON, Mary Arthur Primary Care Physician [place] [facility] [place] 02/24/21 - 03/03/21 [facility] [address] [place] [address]- Encounter Diagnosis Physical exam(Discharge Diagnosis) - 02/24/21 Cough(Discharge Diagnosis) - 02/24/21 Endometriosis(Discharge Diagnosis) - 02/24/21 Heart murmur(Discharge Diagnosis) - 02/24/21 Hypothyroidism(Discharge Diagnosis) - 02/24/21 Tubular adenoma of colon(Discharge Diagnosis) - 02/24/21 Vulvar vestibulitis(Discharge Diagnosis) - 02/24/21 Attending Physician: Mary Dos Santos NP Allergies, Adverse [...] 4 Refills, Maintenance, 02/05/20 8:17:00 EST, Capsule, [facility]/pharmacy #[id number], Partial fill upon patient request, 174, [...] 4 Refills, Maintenance, 02/13/21 16:15:00 EST, Tablet, [facility]/pharmacy #[id number], 175.26, cm, 02/10/21 10:55:00 EST, Height, [...] 01/09/21 7:45:00 EDT, Route to Pharmacy Electronically, [facility]/pharmacy #[id number], Partial fill upon patient request... Start Date: [...] Effective Dates Health Status Clinical Service Informant Physical exam Discharge Diagnosis 02/24/21 Cough Discharge Diagnosis 02/24/21 Endometriosis Discharge Diagnosis 02/24/21 Heart murmur Discharge Diagnosis 02/24/21 Hypothyroidism Discharge Diagnosis 02/24/21 Tubular adenoma of colon Discharge Diagnosis 02/24/21 Vulvar vestibulitis Discharge Diagnosis 02/24/21 Non-Specified Vital Signs Most recent to oldest [Reference Range]: 1 2 Height 175 cm (02/24/21 8:13 AM) 175 cm (02/24/21 7:39 AM) Weight 99.1 kg (02/24/21 7:39 AM) Oxygen Saturation [94-100 %] 97 % (02/24/21 7:39 AM) Pulse Rate [55-90 bpm] 87 bpm (02/24/21 7:39 AM) Body Mass Index [18.5-24.99] 32.36 *>HHI* (02/24/21 7:39 AM) Blood Pressure [90-138/55-84 mm Hg] 118/ 82mm Hg (02/24/21 8:13 AM) 122/83mm Hg (02/24/21 7:39 AM) Mode of Delivery (Oxygen) Room air (02/24/21 7:39 AM) Blood pressure sites Arm, left (02/24/21 8:13 AM) Arm, left (02/24/21 7:39 AM) Weight Obtained Via Standing scale (02/24/21 7:39 AM) Social History Social History Type Response Smoking Status Never smoker entered on: 10/29/13 Sex
--- OUTSIDE RECORDS SUMMARY | 2023-07-04 16:58 | XMS_ITS | Continuity of Care Document ---
Author Organization [facility] Address [address] [place] [address]- Care Team Providers Care Air Tester Name Role Phone Raya LAYTON, Mary Arthur Primary Care Physician En[place] [facility] [place] Date(s): 02/28/22 - 03/30/22 [facility] [address] [place] [address]- Attending Physician: Willam Sin Admitting Physician: AdmtrWillam [...] mL, 5 Refills, Maintenance, 02/01/22 10:29:00 EST, [place], [id number], Partial fill upon patient request [...] Member Role: Primary Care Nurse Address: Address: [address] [place] [address] Trauma [place] [address]- Name: Mary Dos Santos NP Position: [facility] PCO Associate Professional Member Role: PCP Address: Address: [address] [place] [address] 3[address] [place] [address]- Care Team Related Persons Name: GUILLAUME GONSALVES Address: home [address] [place] [address] Name: JENNIFER LAMA Name: RIKY WEAVER Address: home [address] [place] [address]
--- OUTSIDE RECORDS SUMMARY | 2023-07-04 16:58 | XMS_ITS | Continuity of Care Document ---
Author Organization [facility] Address [address] [place] [address]- Care Team Providers Care Production Tech Name Role Phone Raya LAYTON, Mary Arthur Primary Care Physician En[place] [facility] [place] Date(s): 03/28/19 - 07/12/19 [facility] [address] [place] [address] [facility] Attending Physician: Froilan Blake MD Admitting Physician: Froilan Blake MD Referring Physician: Leonard Kothari MD Allergies, Adverse Reactions, Alerts Substance Reaction [...] Note: Declined 2Result Comment: [05/07/2015] [facility] Estrace Vaginal Cream 0.1 mg/g See Instructions, [...]
--- OUTSIDE RECORDS SUMMARY | 2023-07-04 16:58 | XMS_ITS | Continuity of Care Document ---
Author Organization [facility] Address [address] [place] [address]- Care Team Providers Care Puller Over Name Role Phone Raya LAYTON, Mary Arthur Primary Care Physician [place] [facility] [place] 05/25/19 - 06/04/19 [facility] [address] [place] [address]- [facility] Attending Physician: Willam Sin Admitting Physician: AdmtrWillam [...] Refills, Soft Stop, 05/25/19 12:07:00 EDT, Tablet, [facility]/pharmacy #[id number], 174.5, cm, 03/02/19 16:21:00 EST, Height, 89.1, [...]
--- OUTSIDE RECORDS SUMMARY | 2023-07-04 16:58 | XMS_ITS | Continuity of Care Document ---
Author Organization [facility] Address [address] [facility], 4t [address] [place] [address]- Care Team Providers Care Steel Finisher Name Role Phone Raya COSTUMER, Mary Arthur Primary Care Physician Encounter [place] Date(s): 11/13/19 - 12/13/19 [facility] [address] [place] [address], 4th [address] [place] [address]- [facility] Attending Physician: Admtr, Ar8 Allergies, Adverse Reactions, [...] each, 0 Refills, Maintenance, 11/13/19 9:12:00 EDT, [facility]/pharmacy #[id number], 174.5, cm, 11/13/19 8:16:00 EDT, Height, 89.1, kg, 01/12/19 19:27:00 EDT, Dry Weight Start Date: 11/13/19 Stop Date: 02/11/20 Status: Ordered levothyroxine 0.025 mg oral tablet 1 tablet = 25 mcg, By Mouth, Daily, # 90 tablet, 5 Refills, Maintenance, 11/13/19 14:24:00 EDT, Tablet, [facility]/pharmacy #[id number], 174.5, cm, 11/13/19 8:16:00 EDT, [...]
--- OUTSIDE RECORDS SUMMARY | 2023-07-04 16:58 | XMS_ITS | Continuity of Care Document ---
Author Organization [facility] Address [address] [address]- Care Team Providers Care Quality Rn Name Role Phone Raya BLOOD DONOR RECRUITER, Mary Arthur Primary Care Physician Encounter [facility] Date(s): 08/03/21 - 09/02/21 [facility] [address] [facility] [address] [place] [address]- Attending Physician: Willam Sin Admitting Physician: Willam [...] Refills, Maintenance, 04/20/21 10:35:00 EST, EC Capsule, [id number], Partial fill upon patient request if the prescription is fora schedule II opioid drug., 175, cm, 04/20/21 10:05... Start Date: 04/20/21 Status: Ordered tiZANidine 2 mg oral tablet 2 mg, 1, tablet, By Mouth, Daily at bedtime, PRN, PRN spasm, # 30 tablet, Refills 0, Tot. Refills 0, Maintenance, as needed for muscle spasm, 01/09/21 7:45:00 EDT, Route to Pharmacy Electronically, [facility]/pharmacy #[id number], Partial fill upon patient request... Start Date: 01/09/21 Stop Date: 02/08/21 Status: Ordered Vagifem 10 mcg vaginal tablet 1 tablet = 10 mcg, Vaginally, Daily at bedtime, Insert one tablet daily x 2 weeks then twice weekly, # 18 tablet, 11 Refills, Maintenance, 07/01/21 16:26:00 EDT, [facility]/pharmacy #[id number], Partial fill uponpatient request if the prescription [...]
--- OUTSIDE RECORDS SUMMARY | 2023-07-04 16:58 | XMS_ITS | Continuity of Care Document ---
Author Organization [facility] Address [address] [place] [address]- Care Team Providers Care J2Ee Android Developer Name Role Phone Raya LAYTON, Mary Arthur Primary Care Physician Encounter [facility] [place] Date(s): 02/07/23 - 02/14/23 [facility] [address] [place] [address]- Encounter Diagnosis Sinusitis(Discharge Diagnosis) - 02/07/23 Attending Physician: Kay Lee MD Referring Physician: Mary Dos Santos NP Allergies, [...] Note: Declined 2Result Comment: [05/07/2015] [facility] Azithromycin 5 Day Dose Pack 250 mg oral tablet 1 pack/packet, By Mouth, Once, # 6 tablet, 0 Refills, Soft Stop, 02/07/23 9:29:00 EST, Tablet, [id number], Partial fill upon patient request if the prescription is for a schedule II opioid drug., 174, cm, 02/07/23 9:10:00 EST, Height, 90.3, kg... Start Date: 02/07/23 Status: Ordered benzonatate 100 mg oral capsule 1 capsule [...] kg, 09/30/21... Start Date: 02/07/23 Status: Ordered fluconazole 150 mg oral tablet 1 tablet = 150 mg, By Mouth, Once, # 1 tablet, 0 Refills, Soft Stop, 09/03/22 9:39:00 EDT, Tablet, [id number], Partial fill upon patient request if the prescription is for a schedule II opioid drug., 174, cm, 09/03/22 9:19:00 EDT, Height, 90.3... Start Date: 09/03/22 Status: Ordered fluconazole 150 mg oral tablet 1 tablet = 150 mg, By Mouth, Once, Repeat dose if still having symptoms in 72 hours, # 2 tablet, 0 Refills, Soft Stop, 02/07/23 9:37:00 EST, Tablet, [id number], Partial fill upon patient request if the prescription is for a schedule II opioid... Start Date: 02/07/23 Status: Ordered ipratropium nasal 21 mcg/inh spray 2 sprays, Nares, Both, 3 times a day, PRN Nasal Congestion, # 30 mL, 5 Refills, Maintenance, 02/01/22 10:29:00 EST, [place], [id number], Partial fill upon patient request [...] Dry Weight Start Date: 12/08/21 Status: Ordered Sudafed 12-Hour 120 mg oral tablet, extended release 1 tablet = 120 mg, By Mouth, Every 12 hours, PRN as needed for congestion, # 10 tablet, 0 Refills, Maintenance, 02/07/23 9:29:00 EST, ER Tablet, [id number], Partial fill upon patient [...] Confirmed 12/02/11 Active Vulvar vestibulitis Confirmed Active Diagnosis Diagnosis Type Effective Dates Health Status Clini faisal Service Informant Sinusitis Discharge Diagnosis 02/07/23 Vital Signs Most recent to oldest [Reference Range]: 1 Height 174 cm (02/07/23 9:10 AM) Oxygen Saturation [94-100 %] 98 % (02/07/23 9:10 AM) Pulse Rate [55-90 bpm] 79 bpm (02/07/23 9:10 AM) Blood Pressure [90-138/55-84 mm Hg] 130/ 88mm Hg (02/07/23 9:10 AM) Temperature [96.8-100.4 DegF] 97.5 DegF (02/07/23 9:10 AM) Mode of Delivery (Oxygen) Room air (02/07/23 9:10 AM) Blood pressure sites Arm, right (02/07/23 9:10 AM) Temperature Route Temporal (02/07/23 9:10 AM) Social History Social History Type Response Smoking Status Never smoker entered on: 10/29/13 Sex Patient Care team information Care Team Personnel Name: Dori Mendez NP Position: [facility] Associate Professional Member Role: Primary Care Nurse Address: Address: [address] [facility] Trauma [place] [address]- Name: Mary Dos Santos NP Position: [facility] PCO Associate Professional Member Role: PCP Address: Address: [address] [place] [address] 3rd [place] [address]- Care Team Related Persons Name: GUILLAUME GONSALVES Address: home [address] [place] [address] Name: JENNIFER LAMA Name: RIKY WEAVER Address: [address] [address]
--- OUTSIDE RECORDS SUMMARY | 2023-07-04 16:58 | XMS_ITS | Continuity of Care Document ---
Author Organization [facility] Address [address] [place] [id number]- Care Team Providers Care Boilermaker Welder Name Role Phone Raya TECHNICAL SUPPORT 1 SOFTWARE ENGINEER, Mary Arthur Primary Care Physician En[place] [facility] [place] Date(s): 04/20/21 - 04/27/21 [facility] [address] [place] [address]- Encounter Diagnosis Cough(Discharge Diagnosis) - 04/20/21 Dyspnea on exertion(Discharge Diagnosis) - 04/20/21 Attending Physician: Lewis NUGENT, Floyd Carmona Referring Physician: Gia Vo MD Allergies, Adverse Reactions, Alerts Substance Reaction [...] 01/09/21 7:45:00 EDT, Route to [facility]ically, [id number], Partial fill upon patient request... Start Date: 01/09/21 Stop Date: 02/08/21 Status: Ordered Problem List Condition Effective Dates Status Health Status Inform ant Cough(Confirmed) Active Endometriosis(Confirmed) Active Heart murmur(Confirmed) Active Hypothyroidism(Confirmed) Active Lumbar degenerative disc disease(Confirmed) 11/30/91 Active Obese class I(Confirmed) Active Right shoulder pain(Confirmed) Active Tubular adenoma of colon(Confirmed) 12/02/11 Active Vulvar vestibulitis(Confirmed) Active Diagnosis Diagnosis Type Effective Dates Health Status Cl inical Service Informant Cough Discharge Diagnosis 04/20/21 Dyspnea on exertion Discharge Diagnosis 04/20/21 Vital Signs Most recent to oldest [Reference Range]: 1 Height 175 cm (04/20/21 10:05 AM) Weight 103.8 kg (04/20/21 10:05 AM) Oxygen Saturation [94-100 %] 94 % (04/20/21 10:05 AM) Pulse Rate [55-90 bpm] 83 bpm (04/20/21 10:05 AM) Body Mass Index [18.5-24.99] 33.89 *>HHI* (04/20/21 10:05 AM) Blood Pressure [90-138/55-84 mm Hg] 118/ 62mm Hg (04/20/21 10:05 AM) Temperature [96.8-100.4 DegF] 96.6 DegF *L* (04/20/21 10:05 AM) Blood pressure sites Arm, left (04/20/21 10:05 AM) Temperature Route Temporal (04/20/21 10:05 AM) Social History Social History Type Response Smoking Status Never smoker entered on: 10/29/13 Sex
--- OUTSIDE RECORDS SUMMARY | 2023-07-04 16:58 | XMS_ITS | Continuity of Care Document ---
Author Organization [facility] Address Unknown Care Team Providers Care Strategic Debriefing Officer Name Role Phone Raya LAYTON, Mary Arthur Primary Care Physician Encounter [facility] [place] Date(s): 07/02/21 - 08/01/21 [facility] Attending Physician: Admtr, Ar8 Allergies, Adverse Reactions, [...] Refills, Maintenance, 02/05/20 8:17:00 EST, [place], [id number], Partial fill upon patient request, 174, cm, 02/05/20 7:47:00 EST, Height, 89.1, kg, 01/12/19 19:27:00 EDT, Dry... Start Date: 02/05/20 Stop Date: 07/04/20 Status: Ordered Centrum By Mouth, Daily, 0 Refills, Maintenance, 11/13/19 8:20:00 EDT Start Date: 11/13/19 Status: Ordered Diflucan 150 mg oral tablet 1 tablet = 150 mg, By Mouth, Once, # 1 tablet, 1 Refills, Soft Stop, 07/02/21 15:16:00 EDT, [id number], Partial fill upon patient request if the prescription is for a schedule II opioid drug., 175, cm, 07/02/21 13:47:00 EDT, Height, 99, kg, 09... Start Date: 07/02/21 Status: Ordered Diflucan 150 mg oral tablet 1 tablet = 150 mg, By Mouth, Once, # 1 tablet, 0 Refills, Soft Stop, 07/25/21 10:30:00 EDT, Tablet,[facility] #[id number], Partial fill upon patient request if the prescription is for a schedule II opioid drug., 175, cm, 07/25/21 10:01:00 EDT, Height, 99... Start Date: 07/25/21 Status: Ordered levothyroxine 0.025 mg oral tablet 1 tablet = 25 mcg, By Mouth, Daily, # 90 tablet, 4 Refills, Maintenance, 02/13/21 16:15:00 EST, Tablet, [facility]/pharmacy #[id number], 175.26, cm, 02/10/21 10:55:00 EST, Height, [...]
--- OUTSIDE RECORDS SUMMARY | 2023-07-04 16:58 | XMS_ITS | Continuity of Care Document ---
Author Organization [facility] Address [address] [place] [address]- Care Team Providers Care Supervisor Hanging And Trimming Name Role Phone Raya LINUX SUPPORT ENGINEER, Mary Arthur Primary Care Physician Encounter [facility] [place] Date(s): 08/16/21 - 09/15/21 [facility] [address] [place] [address]- Attending Physician: Willam Sin Admitting Physician: Willam [...] Refills, Maintenance, 02/13/21 16:15:00 EST, Tablet, [facility]/pharmacy #[id number], 175.26, cm, 02/10/21 10:55:00 EST, Height, [...] 7:45:00 EDT, Route to Pharmacy Electronically, [facility]/pharmacy #[id number], Partial fill upon patient request... Start Date: 01/09/21 Stop Date: 02/08/21 Status: Ordered Vagifem 10 mcg vaginal tablet 1 tablet = 10 mcg, Vaginally, Daily at bedtime, Insert one tablet daily x 2 weeks then twice weekly, # 18 tablet, 11 Refills, Maintenance, 07/01/21 16:26:00 EDT, [facility]/pharmacy #[id number], Partial fill uponpatient request if the prescription [...]
--- OUTSIDE RECORDS SUMMARY | 2023-07-04 16:59 | XMS_ITS | Continuity of Care Document ---
Author Organization [facility] Address [address] [place] [address]- Care Team Providers Care Media Monitor Name Role Phone Raya WIRING MECHANIC, Mary Arthur Primary Care Physician Encounter [facility] [place] Date(s): 02/07/23 - 03/09/23 [facility] [address] [place] [address]- Attending Physician: Willam Sin Admitting Physician: Willam [...] mL, 5 Refills, Maintenance, 02/01/22 10:29:00 EST, [place], [id number], Partial fill upon patient request [...] Team Personnel Name: Dori Mendez NP Position: [facility] Associate Professional Member Role: Primary Care Nurse Address: Address: [address] [place] [address] Trauma [place] [address]- Name: Mary Dos Santos NP Position: [facility] PCO Associate Professional Member Role: PCP Address: Address: [address] [place] [address] 3rd [place] [address]- Care Team Related Persons Name: GUILLAUME GONSALVES Address: home [address] [place] [address] Name: JENNIFER LAMA Name: RIKY WEAVER Address: home [address] [place] [address]
--- OUTSIDE RECORDS SUMMARY | 2023-07-04 16:59 | XMS_ITS | Continuity of Care Document ---
Author Organization [facility] Address [address] [place], [place] [address]marylin mcdonald, [address] [place] [address]- Care Team Providers Care Wilton Weaver Name Role Phone Raya ENGINE ROOM OPERATOR, Mary Arthur Primary Care Physician Encounter [facility] [place] Date(s): 01/08/21 - 02/07/21 [facility] [address] [place] [address] Drive, [address] [place] [address]- Allergies, Adverse Reactions, Alerts Substance Reaction Severity [...] Refills, Maintenance, 02/05/20 8:17:00 EST, [place], [id number], Partial fill upon patient request, 174, cm, 02/05/20 7:47:00 EST, Height, 89.1, kg, 01/12/19 19:27:00 EDT, Dry... Start Date: 02/05/20 Stop Date: 07/04/20 Status: Ordered Centrum By Mouth, Daily, 0 Refills, Maintenance, 11/13/19 8:20:00 EDT Start Date: 11/13/19 Status: Ordered levothyroxine 0.025 mg oral tablet 1 tablet = 25 mcg, By Mouth, Daily, # 90 tablet, 0 Refills, Maintenance, 11/21/20 7:39:00 EDT, Tablet, [facility]/pharmacy #[id number], 174, cm, 11/20/20 7:16:00 EDT, Height, [...] 01/09/21 7:45:00 EDT, Route to Pharmacy Electronically, [facility]/pharmacy #[id number], Partial fill upon patient request... [...]
--- OUTSIDE RECORDS SUMMARY | 2023-07-04 16:59 | XMS_ITS | Continuity of Care Document ---
Author Organization [facility] Address [address] [place] [address]- Care Team Providers Care Vp Analysis Name Role Phone Raya LAYTON, Mary Arthur Primary Care Physician Encounter [facility] [place] Date(s): 09/03/22 - 09/10/22 [facility] [address] [place] [address]- Encounter Diagnosis Pharyngitis(Discharge Diagnosis) - 09/03/22 Sinusitis(Discharge Diagnosis) - 09/03/22 Recurrent vaginitis(Discharge Diagnosis) - 09/03/22 Attending Physician: Maddie Toledo MD Referring Physician: Mary Dos Santos NP [...] Note: Declined 2Result Comment: [facility]05/07/2015] [facility] amoxicillin-clavulanate 875 mg-125 mg oral tablet 1 tablet, By Mouth, 2 times a day, for 10 days, # 20 tablet, 0 Refills, Acute 09/13/22 9:39:00 EDT,09/03/22 9:39:00 EDT, Tablet, [facility]/pharmacy #[id number], Partial fill upon patient request if the prescription is for a schedule II opioid drug., 174, cm, ... Start Date: 09/03/22 Stop Date: 09/13/22 Status: Ordered CeleBREX 200 mg oral capsule [...] 11 Refills, Maintenance, 02/01/22 10:28:00 EST, Tablet, [facility]/pharmacy #[id number], Partial fill upon patient request [...] mL, 5 Refills, Maintenance, 02/01/22 10:29:00 EST, [place], [id number], Partial fill upon patient request if the prescription isfor a schedule II opioid drug., 2 sprays Nares, Bot... Start Date: 02/01/22 Status: Ordered levothyroxine 0.025 mg oral tablet 1 tablet = 25 mcg, By Mouth, Daily, # 90 tablet, 4 Refills, Maintenance, 12/08/21 9:25:00 EDT, Tablet, [facility]/pharmacy #[id number], 173.2, cm, 12/08/21 9:15:00 EDT, Height, [...] Effective Dates Health Status Clinical Service Informant Pharyngitis Discharge Diagnosis 09/03/22 Sinusitis Discharge Diagnosis 09/03/22 Recurrent vaginitis Discharge Diagnosis 09/03/22 Vital Signs Most recent to oldest [Reference Range]: 1 Height 174 cm (09/03/22 9:19 AM) Oxygen Saturation [94-100 %] 99 % (09/03/22 9:19 AM) Pulse Rate [55-90 bpm] 86 bpm (09/03/22 9:19 AM) Blood Pressure [90-138/55-84 mm Hg] 127/ 84mm Hg (09/03/22 9:19 AM) Respiratory Rate [16-30 br/min] 20 br/mi n (09/03/22 9:19 AM) Temperature [96.8-100.4 DegF] 98.6 DegF (09/03/22 9:19 AM) Mode of Delivery (Oxygen) Room air (09/03/22 9:19 AM) Blood pressure sites Arm, left (09/03/22 9:19 AM) Temperature Route Temporal (09/03/22 9:19 AM) Social History Social History Type Response Smoking Status Never smoker entered on: 10/29/13 Sex Note * Myron Pacheco: PERFORM, SIGN, VERIFY Event Display: Patient Education/Instruction Authored Date: [id number] [facility] *[facility] Clinical Summary Name JOÃO WEAVER Age 57 Years 1965 PCP Raya WELFARE WORKER, Mary Arthur PCP Visit Date 09/03/2022 09:11:00 Additional Instructions: Scheduled Appointments?? Future Appointments ?*[facility] ?[address]??[place],??[place],??[address] ?Phone:??--?Fax:??-- ?Appt. Date:??11/08/2022?3:45 PM ?Scheduled Provider:??Rad Vasquez MD Follow-Up Instructions ?? Diagnosis Acute pharyngitis, unspecified; Acute vaginitis; Chronic sinusitis, unspecified Medications: Please continue your medications until treatment is completed or stopped by your provider. Discuss any questions related to medications with your provider. New Medications [facility]/pharmacy #[id number], [address], [place] [id number], [phone] Amoxicillin-Clavulanate (amoxicillin-clavulanate 875 mg-125 mg oral tablet) 1 tab(s) Oral twice a day for 10 Days. Refills: 0. Next Dose: Fluconazole (fluconazole 150 mg oral tablet) 1 tab(s) Oral once. Refills: 0. Next Dose: Medications to Continue with No Changes These medications were not printed or sent to your pharmacy Celecoxib (CeleBREX 200 mg oral capsule) 1 capsule Oral Daily as needed for pain for 30 Days. Refills: 4. Next Dose: Estradiol Topical (Yuvafem 10 mcg vaginal tablet) 1 tab(s) Vaginally Daily at Bedtime. Next Dose: Famotidine (famotidine 40 mg oral tablet) 1 tab(s) Oral Daily at Bedtime. Refills: 11. Next Dose: Ipratropium Nasal (ipratropium nasal 21 mcg/inh spray) 2 spray(s) Nares, Both 3 times a day as needed Nasal Congestion. Refills: 5. Next Dose: Levothyroxine (levothyroxine 0.025 mg oral tablet) 1 tab(s) Oral Daily. Refills: 4. Next Dose: Multivitamin With Minerals (Centrum) Oral Daily. Next Dose: Allergy Info:?? oxyCODONE; fentaNYL; Percocet 7.5/325; Vicodin; aspirin Medications Given This Visit Future Orders ?Throat Culture Grp A Strep? Order Date:09/03/22?- Complete on or after?09/03/22 Vital Signs Height 174 cm Weight BMI Blood Pressure 127 mm Hg/84 mm Hg Temperature 98.6 DegF Pulse Rate 86 bpm Respiratory Rate 20 br/min 02 Sat Mode of Delivery 99 %/Room air You can now view a summary of your hospital visit from the comfort of your home through a free online portal called MST. MST is a website that allows you to securely view your medical information including discharge summary, medications and follow-up visits. ??You can alsosend a secure electronic message to your doctor???s office to request appointments, renew medications or just ask a question. You can enroll at [email or web address] or register during your next office visit. Disclaimer:?? The information provided is of a general nature and is intended to be used in conjunction with the recommendations and advice of your health care practitioner. ??Every effort has been made to ensure that the information provided is accurate and complete at the time it is provided to you however, as your needs change, or, as new ??information becomes available, different or additional instructions may be required. If you have questions, please consult with your primary care provider or pharmacist, as appropriate. ??This information is not intended to serve as substitution for assessment and evaluation by a qualified health care provider. If you do not have a primary care provider, you may find a [facility] provider by calling [facility] [employer] at [phone]. For information about the plan of care including goals and instructions for your diagnosis, please see the patient education orders section of this document. Patient Education Materials?? The content of this educational material or handout may have been modified, supplemented, or adapted from its original content and format to support your individualized medical care. Patient Care team information Care Team Personnel Name: Dori Mendez NP Position: S Associate Professional Member Role: Primary Care Nurse Address: Address: [address] [facility] Trauma and [place] [address]- [place] Name: Mary Dos Santos NP Position: [facility] PCO Associate Professional Member Role: PCP Address: Address: [address] [place] [address] 3rd [place] [address]- [place] Care Team Related Persons Name: GUILLAUME GONSALVES Address: [address] [place] [address] Name: JENNIFER LAMA Name: RIKY WEAVER Address: home [address] [place] [address]
--- OUTSIDE RECORDS SUMMARY | 2023-07-04 16:59 | XMS_ITS | Continuity of Care Document ---
Author Organization [facility] Address [address] [place] [address]- Care Team Providers Care Program Checker Name Role Phone Raya LAYTON, Mary Arthur Primary Care Physician Encounter [facility] Date(s): 02/28/22 - 03/07/22 [facility] [place], [place] [address] Encounter Diagnosis Left otitis media(Discharge Diagnosis) - 02/28/22 Conjunctivitis, left eye(Discharge Diagnosis) - 02/28/22 Strep pharyngitis(Discharge Diagnosis) - 02/28/22 Attending Physician: Maddie Toledo MD Referring Physician: [...] Declined 2Result Comment: [05/07/2015] [facility] Medic[facility] amoxicillin 500 mg oral capsule 1 capsule = 500 mg, By Mouth, 2 times a day, for 10 days, # 20 capsule, 0 Refills, Acute 03/08/22 12:56:00 EST, 02/26/22 12:56:00 EST, Capsule, [facility]/pharmacy #[id number], Partial fill upon patient request if the prescription is for a schedule II opioid drug.... Start Date: 02/26/22 Stop Date: 03/08/22 Status: Ordered amoxicillin-clavulanate 500 mg-125 mg oral tablet 1 tablet, By Mouth, Every 12 hours, for 10 days, # 20 tablet, 0 Refills, Acute 03/10/22 9:54:00 EST, 02/28/22 9:54:00 EST, Tablet, [facility]/pharmacy #[id number], Partial fill upon patient request if the prescription is for a schedule II opioid drug., 173.2, cm,... Start Date: 02/28/22 Stop Date: 03/10/22 Status: Ordered CeleBREX 200 mg oral capsule 1 capsule = 200 mg, By Mouth, Daily, PRN for pain, # 30 capsule, 4 Refills, Maintenance, 02/05/20 8:17:00 EST, Capsule, [facility]/pharmacy #[id number], Partial fill upon patient request, 174, [...] 11 Refills, Maintenance, 02/01/22 10:28:00 EST, Tablet, [facility]/pharmacy #[id number], Partial fill upon patient request if the prescription is for a schedule II opioid drug., 173.2, cm, 02/01/22 10:12:0... Start Date: 02/01/22 Status: Ordered fluconazole 150 mg oral tablet 1 tablet = 150 mg, By Mouth, Once, # 1 tablet, 0 Refills, Soft Stop, 02/24/22 18:07:00 EST, Tablet,[facility]/pharmacy #[id number], Partial fill upon patient request if the prescription is for a schedule II opioid drug., 173.2, cm, 02/24/22 13:23:00 EST, Height,... Start Date: 02/24/22 Status: Ordered ipratropium nasal 21 mcg/inh spray 2 sprays, Nares, Both, 3 times a day, PRN Nasal Congestion, # 30 mL, 5 Refills, Maintenance, 02/01/22 10:29:00 EST, [place], [facility]/pharmacy #[id number], Partial fill upon patient request if the prescription isfor a schedule II opioid drug., 2 sprays Nares, Bot... Start Date: 02/01/22 Status: Ordered levothyroxine 0.025 mg oral tablet 1 tablet = 25 mcg, By Mouth, Daily, # 90 tablet, 4 Refills, Maintenance, 12/08/21 9:25:00 EDT, Tablet, [facility]/pharmacy #[id number], 173.2, cm, 12/08/21 9:15:00 EDT, Height, 90.3, kg, 09/30/21 15:06:00 EDT, Dry Weight Start Date: 12/08/21 Status: Ordered Liletta 52 mg intrauteral device 1 each = 52 mg, Once, Inserted today 01/15/2016, 0 Refills, Maintenance, 01/15/16 11:33:21 Start Date: 01/15/16 Status: Ordered meclizine 25 mg oral tablet 1 tablet = 25 mg, By Mouth, 3 times a day, for 7 days, # 21 tablet, 0 Refills, Acute 03/10/22 9:36:00 EST, 03/03/22 9:36:00 EST, Tablet, [facility]/pharmacy #[id number], Partial fill upon patient request if the prescription is for a schedule II opioid drug., 173.2... Start Date: 03/03/22 Stop Date: 03/10/22 Status: Ordered Yuvafem 10 mcg vaginal tablet 1 tablet = 10 mcg, Vaginally, Daily at bedtime, 0 Refills, Maintenance, 10/12/21 15:56:00 EDT, Partial fill upon patient request if the prescription is for a schedule II opioid drug. Start Date: 10/12/21 Status: Ordered Yuvafem 10 mcg vaginal tablet 1 tablet = 10 mcg, Vaginally, Every Tuesday and , # 9 tablet, 11 Refills, Maintenance, 03/03/22 13:32:00 EST, [facility]/pharmacy #[id number], Partial fill upon patient request if the prescription is for a schedule II opioid drug., 173.2, cm, 03/03/22 9:39... Start Date: 03/03/22 Status: Ordered Yuvafem 10 mcg vaginal tablet 1 tablet = 10 mcg, Vaginally, Every Tuesday and , # 24 tablet, 6 Refills, Maintenance, 12/08/21 9:20:00 EDT, [facility]/pharmacy #[id number], Partial fill [...] Effective Dates Health Status Clinical Service Informant Left otitis media Discharge Diagnosis 02/28/22 Conjunctivitis, left eye Discharge Diagnosis 02/28/22 Strep pharyngitis Discharge Diagnosis 02/28/22 Vital Signs Most recent to oldest [Reference Range]: 1 Height 173.2 cm (02/28/22 9:04 AM) Oxygen Saturation [94-100 %] 99 % (02/28/22 9:04 AM) Pulse Rate [55-90 bpm] 80 bpm (02/28/22 9:04 AM) Blood Pressure [90-138/55-84 mm Hg] 138/ 81mm Hg (02/28/22 9:04 AM) Respiratory Rate [16-30 br/min] 16 br/mi n (02/28/22 9:04 AM) Temperature [96.8-100.4 DegF] 98.2 DegF (02/28/22 9:04 AM) Mode of Delivery (Oxygen) Room air (02/28/22 9:04 AM) Blood pressure sites Arm, right (02/28/22 9:04 AM) Temperature Route Temporal (02/28/22 9:04 AM) Social History Social History Type Response Smoking Status Never smoker entered on: 10/29/13 Sex Note * Devorah Dawson: PERFORM, SIGN, VERIFY Event Display: Patient Education/Instruction Authored Date: [id number] [facility] *[facility] Clinical Summary Name JOÃO WEAVER Age 57 Years 1965 PCP Raya LAYTON, Mary Arthur PCP Visit Date 02/28/2022 08:19:00 Additional Instructions: Scheduled Appointments?? Future Appointments ?*[facility] ?[address] ?[place],??[place],??[address] ?Phone:??--?Fax:??-- ?Appt. Date:??03/03/2022?1:40 PM ?Scheduled Provider:??Franko NUGENT, Gaby Ordoñez ?*[facility] ?[address]??[place],??[place],??[address] ?Phone:??--?Fax:??-- ?Appt. Date:??03/09/2022?7:40 AM ?Scheduled Provider:??Raya LAYTON, Mary Arthur ?*[facility] ?[address]??[place],??[place],??[address] ?Phone:??--?Fax:??-- ?Appt. Date:??04/19/2022?4:15 PM ?Scheduled Provider:??Christina NUGENT, Rad Follow-Up Instructions ?? Diagnosis Medications: Please continue your medications until treatment is completed or stopped by your provider. Discuss any questions related to medications with your provider. Medications to Continue with No Changes These medications were not printed or sent to your pharmacy Amoxicillin (amoxicillin 500 mg oral capsule) 1 capsule Oral twice a day for 10 Days. Refills: 0. Next Dose: Celecoxib (CeleBREX 200 mg oral capsule) 1 capsule Oral Daily as needed for pain for 30 Days. Refills: 4. Next Dose: Estradiol Topical (Yuvafem 10 mcg vaginal tablet) 1 tab(s) Vaginally Daily at Bedtime. Next Dose: Estradiol Topical (Yuvafem 10 mcg vaginal tablet) 1 tab(s) Vaginally every Tuesday and . Refills: 6. Next Dose: Famotidine (famotidine 40 mg oral tablet) 1 tab(s) Oral Daily at Bedtime. Refills: 11. Next Dose: Fluconazole (fluconazole 150 mg oral tablet) 1 tab(s) Oral once. Refills: 0. Next Dose: Ipratropium Nasal (ipratropium nasal 21 mcg/inh spray) 2 spray(s) Nares, Both 3 times a day as needed Nasal Congestion. Refills: 5. Next Dose: Levonorgestrel (Liletta 52 mg intrauteral device) 1 Each once. Inserted today 01/15/2016. Next Dose: Levothyroxine (levothyroxine 0.025 mg oral tablet) 1 tab(s) Oral Daily. Refills: 4. Next Dose: Multivitamin With Minerals (Centrum) Oral Daily. Next Dose: penicillin V potassium (penicillin V potassium 500 mg oral tablet) 1 tab(s) Oral 3 times a day for 10 Days. Refills: 0. Next Dose: Allergy Info:?? oxyCODONE; fentaNYL; Percocet 7.5/325; Vicodin; aspirin Medications Given This Visit Future Orders ?No future orders Vital Signs Height 173.2 cm Weight BMI Blood Pressure 138 mm Hg/81 mm Hg Temperature 98.2 DegF Pulse Rate 80 bpm Respiratory Rate 16 br/min 02 Sat Mode of Delivery 99 %/Room air You can now view a summary of your hospital visit from the comfort of your home through a free online portal called [facility]. [facility] is a website that allows you to securely view your medical information including discharge summary, medications and follow-up visits. ??You can alsosend a secure electronic message to your doctor???s office to request appointments, renew medications or just ask a question. You can enroll at [email or web address] or register during your next office [...] primary care provider, you may find a [facility] provider by calling [facility] at [phone]. For information about the plan of care including goals and instructions for your diagnosis, please see the patient education orders section of this document. Patient Education Materials?? The content of this educational material or handout may have been modified, supplemented, or adapted from its original content and format to support your individualized medical care. * Devorah Dawson: PERFORM, SIGN, VERIFY Event Display: Patient Education/Instruction Authored Date: [id number] [facility] *[facility] Clinical Summary Name JOÃO WEAVER Age 57 Years 1965 PCP Raya LAYTON, Mary Arthur PCP Visit Date 02/28/2022 08:19:00 Additional Instructions: Scheduled Appointments?? Future Appointments ?*[facility] ?[address] ?[place],??[place],??[address] ?Phone:??--?Fax:??-- ?Appt. Date:??03/03/2022?1:40 PM ?Scheduled Provider:??Franko NUGENT, Gaby Ordoñez ?*[facility] ?[address]??[place],??[place],??[address] ?Phone:??--?Fax:??-- ?Appt. Date:??03/09/2022?7:40 AM ?Scheduled Provider:??Raya LAYTON, Mary Arthur ?*[facility] ?[address]??[place],??[place],??[address] ?Phone:??--?Fax:??-- ?Appt. Date:??04/19/2022?4:15 PM ?Scheduled Provider:??Rad Vasquez MD Follow-Up Instructions ?? Diagnosis Medications: Please continue your medications until treatment is completed or stopped by your provider. Discuss any questions related to medications with your provider. Medications to Continue with No Changes These medications were not printed or sent to your pharmacy Amoxicillin (amoxicillin 500 mg oral capsule) 1 capsule Oral twice a day for 10 Days. Refills: 0. Next Dose: Celecoxib (CeleBREX 200 mg oral capsule) 1 capsule Oral Daily as needed for pain for 30 Days. Refills: 4. Next Dose: Estradiol Topical (Yuvafem 10 mcg vaginal tablet) 1 tab(s) Vaginally Daily at Bedtime. Next Dose: Estradiol Topical (Yuvafem 10 mcg vaginal tablet) 1 tab(s) Vaginally every Tuesday and . Refills: 6. Next Dose: Famotidine (famotidine 40 mg oral tablet) 1 tab(s) Oral Daily at Bedtime. Refills: 11. Next Dose: Fluconazole (fluconazole 150 mg oral tablet) 1 tab(s) Oral once. Refills: 0. Next Dose: Ipratropium Nasal (ipratropium nasal 21 mcg/inh spray) 2 spray(s) Nares, Both 3 times a day as needed Nasal Congestion. Refills: 5. Next Dose: Levonorgestrel (Liletta 52 mg intrauteral device) 1 Each once. Inserted today 01/15/2016. Next Dose: Levothyroxine (levothyroxine 0.025 mg oral tablet) 1 tab(s) Oral Daily. Refills: 4. Next Dose: Multivitamin With Minerals (Centrum) Oral Daily. Next Dose: penicillin V potassium (penicillin V potassium 500 mg oral tablet) 1 tab(s) Oral 3 times a day for 10 Days. Refills: 0. Next Dose: Allergy Info:?? oxyCODONE; fentaNYL; Percocet 7.5/325; Vicodin; aspirin Medications Given This Visit Future Orders ?No future orders Vital Signs Height 173.2 cm Weight BMI Blood Pressure 138 mm Hg/81 mm Hg Temperature 98.2 DegF Pulse Rate 80 bpm Respiratory Rate 16 br/min 02 Sat Mode of Delivery 99 %/Room air You can now view a summary of your hospital visit from the comfort of your home through a free online portal called [facility]. [facility] is a website that allows you to securely view your medical information including discharge summary, medications and follow-up visits. ??You can alsosend a secure electronic message to your doctor???s office to request appointments, renew medications or just ask a question. You can enroll at [email or web address] or register during your next office [...] primary care provider, you may find a [facility] provider by calling [facility] at [phone]. For information about the plan of care [...] Member Role: Primary Care Nurse Address: Address: [address] [place] [address] Tra[facility] Care [facility] [place] [id number]- Name: Raay LAYTON, Mary Arthur Position: [facility] PCO Associate Professional Member Role: PCP Address: Address: [address] [place] [address]- Care Team Related Persons Name: GUILLAUME GONSALVES Address: [address] [place] [address] Name: JENNIFER LAMA Name: RIKY WEAVER Address: home [address] [place] [address]
--- OUTSIDE RECORDS SUMMARY | 2023-07-04 16:59 | XMS_ITS | Continuity of Care Document ---
Author Organization [facility] Adult Address [address] [place] [address]- Care Team Providers Care Duck Farmer Name Role Phone Raya LAYTON, Mary Arthur Primary Care Physician Encounter [facility] [place] Date(s): 03/09/22 - 03/16/22 [facility] Adult [address] [place] [address]- Encounter Diagnosis Physical exam(Discharge Diagnosis) - 03/09/22 Endometriosis(Discharge Diagnosis) - 03/09/22 Heart murmur(Discharge Diagnosis) - 03/09/22 Hypothyroidism(Discharge Diagnosis) - 03/09/22 Tubular adenoma of colon(Discharge Diagnosis) - 03/09/22 Left ear pain(Discharge Diagnosis) - 03/09/22 Attending Physician: Mary Dos Santos NP Allergies, [...] acel(Tdap) 12/11/14 Given Tetanus-Diphth Toxoids, Adult (oldterm) 6/26/07 G iven 1Admin Note: Declined 2Result Comment: [05/07/2015] [facility] CeleBREX 200 mg oral capsule 1 capsule = 200 mg, By Mouth, Daily, PRN for pain, # 30 capsule, 4 Refills, Maintenance, 02/05/20 8:17:00 EST, Capsule, [facility]/pharmacy #[id number], Partial fill upon [...] 11 Refills, Maintenance, 02/01/22 10:28:00 EST, Tablet, [facility]/pharmacy #[id number], Partial fill upon patient request if the prescription is for a schedule II opioid drug., 173.2, cm, 02/01/22 10:12:0... Start Date: 02/01/22 Status: Ordered ipratropium nasal 21 mcg/inh spray 2 sprays, Nares, Both, 3 times a day, PRN Nasal Congestion, # 30 mL, 5 Refills, Maintenance, 02/01/22 10:29:00 EST, [place], [facility]/pharmacy #[id number], Partial fill upon [...] Clinical Service Informant Physical exam Discharge Diagnosis 03/09/22 Endometriosis Discharge Diagnosis 03/09/22 Heart murmur Discharge Diagnosis 03/09/22 Hypothyroidism Discharge Diagnosis 03/09/22 Tubular adenoma of colon Discharge Diagnosis 03/09/22 Left ear pain Discharge Diagnosis 03/09/22 Vital Signs Most recent to oldest [Reference Range]: 1 2 Height 174 cm (03/09/22 8:09 AM) 174 cm (03/09/22 7:32 AM) Weight 79.5 kg (03/09/22 7:32 AM) Oxygen Saturation [94-100 %] 93 % *L* (03/09/22 7:32 AM) Pulse Rate [55-90 bpm] 79 bpm (03/09/22 7:32 AM) Body Mass Index [18.5-24.99 kg/m2] 26.26 kg/m2 *H* (03/09/22 7:32 AM) Blood Pressure [90-138/55-84 mm Hg] 118/ 78mm Hg (03/09/22 8:09 AM) 100/80mm Hg (03/09/22 7:32 AM) Temperature [96.8-100.4 DegF] 98.9 DegF (03/09/22 7:32 AM) Mode of Delivery (Oxygen) Room air (03/09/22 7:32 AM) Blood pressure sites Arm, left (03/09/22 8:09 AM) Arm, left (03/09/22 7:32 AM) Temperature Route Oral (03/09/22 7:32 AM) Weight Obtained Via Standing scale (03/09/22 7:32 AM) Social History Social History Type Response Smoking Status Never smoker entered on: 10/29/13 Sex Note * Nankati , Helen: PERFORM, SIGN, VERIFY Event Display: Patient Education/Instruction Authored Date: [id number] [facility] *[facility] [place] [facility] Clinical Summary Name JÃOO WEAVER Age 57 Years 1965 PCP Raya LAYTON, Mary Arthur PCP Visit Date 03/09/2022 07:24:00 Additional Instructions: Scheduled Appointments?? Future Appointments ?*[facility] ?[address]??[place],??[place],??[address] ?Phone:??--?Fax:??-- ?Appt. Date:??04/19/2022?4:15 PM ?Scheduled Provider:??Rad Vasquez MD Follow-Up Instructions ?? Diagnosis Encounter for general adult medical examination without abnormal findings; Endometriosis, unspecified; Otalgia, left ear; Cardiac murmur, unspecified; Hypothyroidism, unspecified; Benign neoplasm of colon, unspecified Medications: Please continue your medications until treatment is completed or stopped by your provider. Discuss any questions related to medications with your provider. Medications to Continue Taking That Have Changed These medications were not printed or sent to your pharmacy - Estradiol Topical (Yuvafem 10 mcg vaginal tablet) 1 tab(s) Vaginally Daily at Bedtime. Next Dose: Medications to Continue with No Changes These medications were not printed or sent to your pharmacy Celecoxib (CeleBREX 200 mg oral capsule) 1 capsule Oral Daily as needed for pain for 30 Days. Refills: 4. Next Dose: Famotidine (famotidine 40 mg oral tablet) 1 tab(s) Oral Daily at Bedtime. Refills: 11. Next Dose: Ipratropium Nasal (ipratropium nasal 21 mcg/inh spray) 2 spray(s) Nares, Both 3 times a day as needed Nasal Congestion. Refills: 5. Next Dose: Levothyroxine (levothyroxine 0.025 mg oral tablet) 1 tab(s) Oral Daily. Refills: 4. Next Dose: Multivitamin With Minerals (Centrum) Oral Daily. Next Dose: No Longer Take the Following Medications Amoxicillin-Clavulanate (amoxicillin-clavulanate 500 mg-125 mg oral tablet) 1 tab(s) Oral every 12 hours for 10 Days. Refills: 0. Fluconazole (fluconazole 150 mg oral tablet) 1 tab(s) Oral once. Refills: 0. Levonorgestrel (Liletta 52 mg intrauteral device) 1 Each once. Inserted today 01/15/2016. Meclizine (meclizine 25 mg oral tablet) 1 tab(s) Oral 3 times a day for 7 Days. Refills: 0. Allergy Info:?? oxyCODONE; fentaNYL; Percocet 7.5/325; Vicodin; aspirin Medications Given This Visit Future Orders ?MM Digital Mammo Screening? Order Date:03/09/22?- Complete on or after?03/09/22 ?Comprehensive Metabolic Panel? Order Date:03/09/22?- Complete on or after?03/09/22 Vital Signs Height 174 cm Weight 79.5 kg BMI 26.26 kg/m2 Blood Pressure 118 mm Hg/78 mm Hg Temperature 98.9 DegF Pulse Rate 79 bpm Respiratory Rate 02 Sat Mode of Delivery 93 %/Room air You can now view a summary of your hospital visit from the comfort of your home through a free online portal called [employer]. [employer] is a website that allows you to securely view your medical information including discharge summary, medications and follow-up visits. ??You can alsosend a secure electronic message to your doctor???s office to request appointments, renew medications or just ask a question. You can enroll at [email or web address] or register during your next office [...] primary care provider, you may find a [facility] provider by calling [facility] [employer] at [phone]. For information about the plan of care including goals and instructions for your diagnosis, please see the patient education orders section of this document. Patient Education Materials?? The content of this educational material or handout may have been modified, supplemented, or adapted from its original content and format to support your individualized medical care. * Helen Talbot: PERFORM, SIGN, VERIFY Event Display: Patient Education/Instruction Authored Date: [id number] [facility] *[facility] [place] [facility] Clinical Summary Name JOÃO WEAVER Age 57 Years 1965 PCP Raya BREAST PULLER, Mary Arthur PCP Visit Date 03/09/2022 07:24:00 Additional Instructions: Scheduled Appointments?? Future Appointments ?*[facility] ?[address],??[place],??[address] ?Phone:??--?Fax:??-- ?Appt. Date:??04/19/2022?4:15 PM ?Scheduled Provider:??Christina NUGENT, Rad Follow-Up Instructions ?? Diagnosis Encounter for general adult medical examination without abnormal findings; Endometriosis, unspecified; Otalgia, left ear; Cardiac murmur, unspecified; Hypothyroidism, unspecified; Benign neoplasm of colon, unspecified Medications: Please continue your medications until treatment is completed or stopped by your provider. Discuss any questions related to medications with your provider. Medications to Continue Taking That Have Changed These medications were not printed or sent to your pharmacy - Estradiol Topical (Yuvafem 10 mcg vaginal tablet) 1 tab(s) Vaginally Daily at Bedtime. Next Dose: Medications to Continue with No Changes These medications were not printed or sent to your pharmacy Celecoxib (CeleBREX 200 mg oral capsule) 1 capsule Oral Daily as needed for pain for 30 Days. Refills: 4. Next Dose: Famotidine (famotidine 40 mg oral tablet) 1 tab(s) Oral Daily at Bedtime. Refills: 11. Next Dose: Ipratropium Nasal (ipratropium nasal 21 mcg/inh spray) 2 spray(s) Nares, Both 3 times a day as needed Nasal Congestion. Refills: 5. Next Dose: Levothyroxine (levothyroxine 0.025 mg oral tablet) 1 tab(s) Oral Daily. Refills: 4. Next Dose: Multivitamin With Minerals (Centrum) Oral Daily. Next Dose: No Longer Take the Following Medications Amoxicillin-Clavulanate (amoxicillin-clavulanate 500 mg-125 mg oral tablet) 1 tab(s) Oral every 12 hours for 10 Days. Refills: 0. Fluconazole (fluconazole 150 mg oral tablet) 1 tab(s) Oral once. Refills: 0. Levonorgestrel (Liletta 52 mg intrauteral device) 1 Each once. Inserted today 01/15/2016. Meclizine (meclizine 25 mg oral tablet) 1 tab(s) Oral 3 times a day for 7 Days. Refills: 0. Allergy Info:?? oxyCODONE; fentaNYL; Percocet 7.5/325; Vicodin; aspirin Medications Given This Visit Future Orders ?MM Digital Mammo Screening? Order Date:03/09/22?- Complete on or after?03/09/22 ?Comprehensive Metabolic Panel? Order Date:03/09/22?- Complete on or after?03/09/22 Vital Signs Height 174 cm Weight 79.5 kg BMI 26.26 kg/m2 Blood Pressure 118 mm Hg/78 mm Hg Temperature 98.9 DegF Pulse Rate 79 bpm Respiratory Rate 02 Sat Mode of Delivery 93 %/Room air You can now view a summary of your hospital visit from the comfort of your home through a free online portal called [employer]. [employer] is a website that allows you to securely view your medical information including discharge summary, medications and follow-up visits. ??You can alsosend a secure electronic message to your doctor???s office to request appointments, renew medications or just ask a question. You can enroll at [email or web address] or register during your next office [...] primary care provider, you may find a [facility] provider by calling [facility] [employer] at [phone]. For information about the plan of care including goals and instructions for your diagnosis, please see the patient education orders section of this document. Patient Education Materials?? The content of this educational material or handout may have been modified, supplemented, or adapted from its original content and format to support your individualized medical care. * Helen Talbot: PERFORM, SIGN, VERIFY Event Display: Patient Education/Instruction Authored Date: [id number] [facility] *[facility] Clinical Summary Name JOÃO WEAVER Age 57 Years 1965 PCP Raya LAYTON, Mary Arthur PCP Visit Date 03/09/2022 07:24:00 Additional Instructions: Scheduled Appointments?? Future Appointments ?*[facility] ?[address],??[place],??[address] ?Phone:??--?Fax:??-- ?Appt. Date:??04/19/2022?4:15 PM ?Scheduled Provider:??Rad Vasquez MD Follow-Up Instructions ?? Diagnosis Encounter for general adult medical examination without abnormal findings; Endometriosis, unspecified; Otalgia, left ear; Cardiac murmur, unspecified; Hypothyroidism, unspecified; Benign neoplasm of colon, unspecified Medications: Please continue your medications until treatment is completed or stopped by your provider. Discuss any questions related to medications with your provider. Medications to Continue Taking That Have Changed These medications were not printed or sent to your pharmacy - Estradiol Topical (Yuvafem 10 mcg vaginal tablet) 1 tab(s) Vaginally Daily at Bedtime. Next Dose: Medications to Continue with No Changes These medications were not printed or sent to your pharmacy Celecoxib (CeleBREX 200 mg oral capsule) 1 capsule Oral Daily as needed for pain for 30 Days. Refills: 4. Next Dose: Famotidine (famotidine 40 mg oral tablet) 1 tab(s) Oral Daily at Bedtime. Refills: 11. Next Dose: Ipratropium Nasal (ipratropium nasal 21 mcg/inh spray) 2 spray(s) Nares, Both 3 times a day as needed Nasal Congestion. Refills: 5. Next Dose: Levothyroxine (levothyroxine 0.025 mg oral tablet) 1 tab(s) Oral Daily. Refills: 4. Next Dose: Multivitamin With Minerals (Centrum) Oral Daily. Next Dose: No Longer Take the Following Medications Amoxicillin-Clavulanate (amoxicillin-clavulanate 500 mg-125 mg oral tablet) 1 tab(s) Oral every 12 hours for 10 Days. Refills: 0. Fluconazole (fluconazole 150 mg oral tablet) 1 tab(s) Oral once. Refills: 0. Levonorgestrel (Liletta 52 mg intrauteral device) 1 Each once. Inserted today 01/15/2016. Meclizine (meclizine 25 mg oral tablet) 1 tab(s) Oral 3 times a day for 7 Days. Refills: 0. Allergy Info:?? oxyCODONE; fentaNYL; Percocet 7.5/325; Vicodin; aspirin Medications Given This Visit Future Orders ?MM Digital Mammo Screening? Order Date:03/09/22?- Complete on or after?03/09/22 ?Comprehensive Metabolic Panel? Order Date:03/09/22?- Complete on or after?03/09/22 Vital Signs Height 174 cm Weight 79.5 kg BMI 26.26 kg/m2 Blood Pressure 118 mm Hg/78 mm Hg Temperature 98.9 DegF Pulse Rate 79 bpm Respiratory Rate 02 Sat Mode of Delivery 93 %/Room air You can now view a summary of your hospital visit from the comfort of your home through a free online portal called [employer]. [employer] is a website that allows you to securely view your medical information including discharge summary, medications and follow-up visits. ??You can alsosend a secure electronic message to your doctor???s office to request appointments, renew medications or just ask a question. You can enroll at [email or web address] or register during your next office visit. [...] primary care provider, you may find a [facility] provider by calling [facility] [employer] at [phone]. For information about the plan of care [...] Team Personnel Name: Dori Mendez NP Position: [facility] Associate Professional Member Role: Primary Care Nurse Address: Address: [address] [place] [address] Trauma and [place] [address]- Name: Mary Dos Santos NP Position: [facility] PCO Associate Professional Member Role: PCP Address: Address: [address] [place] [address] 3rd [place] [address]- Care Team Related Persons Name: GUILLAUME GONSALVES Address: home [address] [place] [address] Name: JENNIFER LAMA Name: RIKY WEAVER Address: home [address] [place] [address]
--- OUTSIDE RECORDS SUMMARY | 2023-07-04 16:59 | XMS_ITS | Continuity of Care Document ---
Author Organization [facility] Adult Address [address] [place] [address]- Care Team Providers Care Sugar Drier Name Role Phone Raya CHEMICAL PROCESS ENGINEER, Mary Arthur Primary Care Physician [place] [facility] [place] Date(s): 02/26/22 - 03/28/22 [facility] Adult [address] [place] [address]- Allergies, Adverse Reactions, Alerts Substance Reaction Severity [...] Refills, Maintenance, 02/05/20 8:17:00 EST, [facility], [id number], Partial fill upon patient request, 174, cm, [...] 11 Refills, Maintenance, 02/01/22 10:28:00 EST, Tablet, [facility]/pharmacy #[id number], Partial fill upon patient request if the prescription is for a schedule II opioid drug., 173.2, cm, 02/01/22 10:12:0... Start Date: 02/01/22 Status: Ordered ipratropium nasal 21 mcg/inh spray 2 sprays, Nares, Both, 3 times a day, PRN Nasal Congestion, # 30 mL, 5 Refills, Maintenance, 02/01/22 10:29:00 EST, [place], [id number], Partial fill upon patient request if the prescription isfor a schedule II opioid drug., 2 sprays Nares, Bot... Start Date: 02/01/22 Status: Ordered levothyroxine 0.025 mg oral tablet 1 tablet = 25 mcg, By Mouth, Daily, # 90 tablet, 4 Refills, Maintenance, 12/08/21 9:25:00 EDT, Tablet, [facility]/pharmacy #[id number], 173.2, cm, 12/08/21 9:15:00 EDT, [...] Team Personnel Name: Dori Mendez NP Position: [facility] Associate Professional Member Role: Primary Care Nurse Address: Address: [address] [place] [address] Trauma [place] [address]- Name: Raya LAYTON, Mary Arthur Position: [facility] PCO Associate Professional Member Role: PCP Address: Address: [address] [place] [address] [address] [place] [address]- Care Team Related Persons Name: GUILLAUME GONSALVES Address: home [address] [place] [address] Name: JENNIFER LAMA Name: RIKY WEAVER Address: home [address] [place] [address]
--- OUTSIDE RECORDS SUMMARY | 2023-07-04 16:59 | XMS_ITS | Continuity of Care Document ---
Author Organization [facility] Address [address] [place] [address], [address] [place] [address]- Care Team Providers Care Digital Asset Coordinator Name Role Phone Raya LAYTON, Mary Arthur Primary Care Physician [id number] Date(s): 07/02/21 - 09/18/21 [facility] [address] [facility], [address] [place] [address]- Attending Physician: Gaby Abdul MD Admitting Physician: Gaby Abdul MD Referring Physician: Mary Dos Santos NP [...] influenza virus vaccine, inactivated 1 01/11/18 Gi grei influenza virus vaccine, inactivated 12/05/13 Give n [...] 01/09/21 7:45:00 EDT, Route to Pharmacy Electronically, [facility]/pharmacy #[id number], Partial fill upon patient request... Start Date: 01/09/21 Stop Date: 02/08/21 Status: Ordered Vagifem 10 mcg vaginal tablet 1 tablet = 10 mcg, Vaginally, Daily at bedtime, Insert one tablet daily x 2 weeks then twice weekly, # 18 tablet, 11 Refills, Maintenance, 07/01/21 16:26:00 EDT, [facility]/pharmacy #[id number], Partial fill uponpatient request if the prescription [...]
--- OUTSIDE RECORDS SUMMARY | 2023-07-04 16:59 | XMS_ITS | Continuity of Care Document ---
Author Organization [facility] Address [address] [place] [address]- Care Team Providers Care Pick Up Driver Name Role Phone Raya LAYTON, Mary Arthur Primary Care Physician [place] [facility] [place] 02/08/22 [facility] [address] [facility] [address] [place] [address]- Encounter Diagnosis Chronic cough(Discharge Diagnosis) - 02/01/22 Attending Physician: Lewis NUGENT, Floyd Carmona Referring Physician: Mary Dos Santos NP Allergies, [...] mL, 5 Refills, Maintenance, 02/01/22 10:29:00 EST, [place], [id number], Partial fill upon patient request [...] tablet, 6 Refills, Maintenance, 12/08/21 9:20:00 EDT, [facility]/pharmacy #[id number], Partial fill upon patient request if the [...] Dates Health Status Cl inical Service Informant Chronic cough Discharge Diagnosis 02/01/22 Vital Signs Most recent to oldest [Reference Range]: 1 Height 173.2 cm (02/01/22 10:12 AM) Weight 82 kg (02/01/22 10:12 AM) Oxygen Saturation [94-100 %] 97 % (02/01/22 10:12 AM) Pulse Rate [55-90 bpm] 77 bpm (02/01/22 10:12 AM) Body Mass Index [18.5-24.99 kg/m2] 27.33 kg/m2 *H* (02/01/22 10:12 AM) Blood Pressure [90-138/55-84 mm Hg] 104/ 73mm Hg (02/01/22 10:12 AM) Blood pressure sites Arm, right (02/01/22 10:12 AM) Social History Social History Type Response Smoking Status Never smoker entered on: 10/29/13 Sex Patient Care team information Care Team Personnel Name: Dori Mendez NP Position: [facility] Associate Professional Member Role: Primary Care Nurse Address: Address: [address] [place] [address] Trauma and Acute Care Surgery [address] Name: Mary Dos Santos NP Position: [facility] PCO Associate Professional Member Role: PCP Address: Address: [address] [place] [address] 3rd Floor [facility] [place] [address]- Care Team Related Persons Name: GUILLAUME GONSALVES Address: home [address] [place] [address] Name: JENNIFER LAMA Name: RIKY WEAVER Address: [address] [place] [address]
--- OUTSIDE RECORDS SUMMARY | 2023-07-04 16:59 | XMS_ITS | Continuity of Care Document ---
Author Organization [facility] Adult Address [address] [place] [address]- Care Team Providers Care Erp Technical Lead Name Role Phone Raya BLUEPRINT CLERK, Mary Arthur Primary Care Physician Encounter [facility] [place] Date(s): 11/21/20 - 12/21/20 [facility] Adult [address] [place] [address]- Allergies, Adverse Reactions, Alerts Substance Reaction Severity [...] Refills, Maintenance, 02/05/20 8:17:00 EST, [place], [id number], Partial fill upon patient request, 174, cm, 02/05/20 7:47:00 EST, Height, 89.1, kg, 01/12/19 19:27:00 EDT, Dry... Start Date: 02/05/20 Stop Date: 07/04/20 Status: Ordered Centrum By Mouth, Daily, 0 Refills, Maintenance, 11/13/19 8:20:00 EDT Start Date: 11/13/19 Status: Ordered levothyroxine 0.025 mg oral tablet 1 tablet = 25 mcg, By Mouth, Daily, # 90 tablet, 0 Refills, Maintenance, 11/21/20 7:39:00 EDT, [place], [id number], 174, cm, 11/20/20 7:16:00 EDT, Height, [...]
--- OUTSIDE RECORDS SUMMARY | 2023-07-04 16:59 | XMS_ITS | Continuity of Care Document ---
Author Organization [facility] Adult Address [address] [place] [address]- Care Team Providers Care Celery Packer Name Role Phone Raya BRIDGE GAME DIRECTOR, Mary Arthur Primary Care Physician Encounter [facility] Date(s): 12/05/20 - 01/04/21 [facility] Adult [address] [place] [address]- Allergies, Adverse Reactions, Alerts Substance Reaction Severity [...] Refills, Maintenance, 02/05/20 8:17:00 EST, [place], [id number], Partial fill upon patient request, 174, cm, [...]
--- OUTSIDE RECORDS SUMMARY | 2023-07-04 16:59 | XMS_ITS | Continuity of Care Document ---
Author Organization [facility] Address [address] [place] [address]- Care Team Providers Care Septic Tank Setter Name Role Phone Raya LAYTON, Mary Arthur Primary Care Physician [place] [facility] [place]25[place]19 - 06/01/19 [facility] [address] [place] [address]- [facility] Attending Physician: Lisa Mauricio MD Referring Physician: Mary Dos Santos NP [...] Note: Declined 2Result Comment: [05/07/2015] [facility] cefdinir 300 mg oral capsule 1 capsule = 300 mg, By Mouth, 2 times a day, for 10 days, # 20 capsule, 0 Refills, Acute 06/04/19 12:06:00 EDT, 05/25/19 12:06:00 EDT, [place], [id number], 174.5, cm, 03/02/19 16:21:00 EST, Height, 89.1, kg, 01/12/19 19:27:00 EDT, Dry Weight Start Date: 05/25/19 Stop Date: 06/04/19 Status: Ordered Estrace Vaginal Cream 0.1 mg/g [...] Refills, Soft Stop, 05/25/19 12:07:00 EDT, Tablet, [facility]/pharmacy #[id number], 174.5, cm, 03/02/19 16:21:00 EST, Height, [...]
--- OUTSIDE RECORDS SUMMARY | 2023-07-04 16:59 | XMS_ITS | Continuity of Care Document ---
Author Organization [facility] Address Unknown Care Team Providers Care Asset Protection Specialist Name Role Phone Raya LAYTON, Mary Arthur Primary Care Physician [place] [facility] [place]s): 02/13/21 - 03/15/21 [facility] Allergies, Adverse Reactions, Alerts [...] Refills, Maintenance, 02/05/20 8:17:00 EST, [place], [id number], Partial fill upon patient request, 174, cm, 02/05/20 7:47:00 EST, Height, 89.1, kg, 01/12/19 19:27:00 EDT, Dry... Start Date: 02/05/20 Stop Date: 07/04/20 Status: Ordered Centrum By Mouth, Daily, 0 Refills, Maintenance, 11/13/19 8:20:00 EDT Start Date: 11/13/19 Status: Ordered levothyroxine 0.025 mg oral tablet 1 tablet = 25 mcg, By Mouth, Daily, # 90 tablet, 4 Refills, Maintenance, 02/13/21 16:15:00 EST, Tablet, [facility]/pharmacy #[id number], 175.26, cm, 02/10/21 10:55:00 EST, Height, 99, [...] 01/09/21 7:45:00 EDT, Route to Pharmacy Electronically, [facility]/pharmacy #[id number], Partial fill upon patient request... Start Date: [...]
--- OUTSIDE RECORDS SUMMARY | 2023-07-04 16:59 | XMS_ITS | Continuity of Care Document ---
Author Organization [facility] Address [address] [place] [address]- Care Team Providers Care Sterilization Technician Name Role Phone Raya LAYTON, Mary Arthur Primary Care Physician [place] [facility] [place] Date(s): 11/25/20 - 12/25/20 [facility] [address] [place] [address]- Attending Physician: AdmWilbert [id number] Admitting Physician: Admtr, Ar8 Referring Physician: Admtr, [...] Refills, Maintenance, 02/05/20 8:17:00 EST, Capsule, [id number], Partial fill upon patient request, 174, cm, 02/05/20 7:47:00 EST, Height, 89.1, kg, 01/12/19 19:27:00 EDT, Dry... Start Date: 02/05/20 Stop Date: 07/04/20 Status: Ordered Centrum By Mouth, Daily, 0 Refills, Maintenance, 11/13/19 8:20:00 EDT Start Date: 11/13/19 Status: Ordered levothyroxine 0.025 mg oral tablet 1 tablet = 25 mcg, By Mouth, Daily, # 90 tablet, 0 Refills, Maintenance, 11/21/20 7:39:00 EDT, Tablet, [facility]/pharmacy #[id number], 174, cm, 11/20/20 7:16:00 [...]
--- OUTSIDE RECORDS SUMMARY | 2023-07-04 16:59 | XMS_ITS | Continuity of Care Document ---
Author Organization [facility] Address [address] [place] [address] Angela mcdonald, [address] [place] [address]- Care Team Providers Care Golf Club Facer Name Role Phone Raya SMALL BUSINESS SALES REPRESENTATIVE, Mary Arthur Primary Care Physician [place] [facility] [place]s): 01/06/21 - 02/05/21 [facility] [address] [place] [address] Drive, [address] [place] [address]- Attending Physician: Admbrendon, Wilbert8 Admitting Physician: Admtr, Wilbert8 Referring Physician: Admtr, Ar8 Allergies, Adverse Reactions, [...] 4 Refills, Maintenance, 02/05/20 8:17:00 EST, Capsule, [facility]/pharmacy #[id number], Partial fill upon patient request, [...] 0 Refills, Maintenance, 11/21/20 7:39:00 EDT, Tablet, [facility]/pharmacy #[id number], 174, cm, 11/20/20 7:16:00 EDT, [...] 7:45:00 EDT, Route to Pharmacy Electronically, [facility]/pharmacy #[id number], Partial fill upon patient request... Start Date: [...]
--- OUTSIDE RECORDS SUMMARY | 2023-07-04 16:59 | XMS_ITS | Continuity of Care Document ---
Author Organization [facility] e Medicine Address [address], 4t [address] [place] [address]- Care Team Providers Care Kardex Clerk Name Role Phone Raya COW WASHER, Mary Arthur Primary Care Physician Encounter [facility] Date(s): 04/09/20 - 05/09/20 [facility] [address], 4th [address] [place], [place] [address] [place] Allergies, Adverse Reactions, Alerts Substance Reaction Severity [...] Refills, Maintenance, 02/05/20 8:17:00 EST, Capsule, [id number], Partial fill upon patient request, 174, cm, [...] 1 Refills, Soft Stop, 04/18/20 16:54:00 EST, [facility]/pharmacy #[id number], Partial fill upon patient request if [...] each, 0 Refills, Maintenance, 11/13/19 9:12:00 EDT, [facility]/pharmacy #[id number], 174.5, cm, 11/13/19 8:16:00 EDT, Height, 89.1, kg, 01/12/19 19:27:00 EDT, Dry Weight Start Date: 11/13/19 Stop Date: 02/11/20 Status: Ordered levothyroxine 0.025 mg oral tablet 1 tablet = 25 mcg, By Mouth, Daily, # 90 tablet, 5 Refills, Maintenance, 11/13/19 14:24:00 EDT, Tablet, [facility]/pharmacy #[id number], 174.5, cm, 11/13/19 8:16:00 EDT, Height, [...]
--- OUTSIDE RECORDS SUMMARY | 2023-07-04 16:59 | XMS_ITS | Continuity of Care Document ---
Author Organization [facility] Address [address] [place] [address]- Care Team Providers Care Archivist Nonprofit Foundation Name Role Phone Raya FANCY WIRE DRAWER, Mary Arthur Primary Care Physician [place] [facility] [place] Date(s): 03/02/21 - 04/01/21 [facility] [address] [place] [address]- Attending Physician: Willam Sin Admitting Physician: AdmtrWillam [...] Refills, Maintenance, 02/05/20 8:17:00 EST, Capsule, [id number], Partial fill upon patient request, 174, cm, 11/24/20 7:47:00 EST, Height, 89.1, kg, 01/12/19 19:27:00 EDT, Dry... Start Date: 02/05/20 Stop Date: 07/04/20 Status: Ordered Centrum By Mouth, Daily, 0 Refills, Maintenance, 11/13/19 8:20:00 EDT Start Date: 11/13/19 Status: Ordered levothyroxine 0.025 mg oral tablet 1 tablet = 25 mcg, By Mouth, Daily, # 90 tablet, 4 Refills, Maintenance, 02/13/21 16:15:00 EST, Tablet, [facility]/pharmacy #[id number], 175.26, cm, 02/10/21 10:55:00 EST, Height, 99, [...] 01/09/21 7:45:00 EDT, Route to Pharmacy Electronically, [facility]/pharmacy #[id number], Partial fill upon patient request... Start Date: [...]
--- OUTSIDE RECORDS SUMMARY | 2023-07-04 16:59 | XMS_ITS | Continuity of Care Document ---
Author Organization [facility] Address [address] [place] [address]- Care Team Providers Care Solutions Sales Consultant Name Role Phone Raya LAYTON, Mary Arthur Primary Care Physician [place] [facility] [place]03[place]23 - 05/10/23 [facility] [address] [place] [address]- Encounter Diagnosis Conjunctivitis, left eye(Discharge Diagnosis) - 05/03/23 Attending Physician: Kay Lee MD Referring Physician: [...] mL, 5 Refills, Maintenance, 02/01/22 10:29:00 EST, [place], [id number], Partial fill upon patient request if the prescription isfor a schedule II opioid drug., 2 sprays Nares, Bot... Start Date: 02/01/22 Status: Ordered levothyroxine 0.025 mg oral tablet 1 tablet = 25 mcg, By Mouth, Daily, # 90 tablet, 3 Refills, Maintenance, 03/29/23 7:54:00 EST, Tablet, [facility]/pharmacy #[id number], 174, cm, 03/29/23 7:46:00 EST, Height, 90.3, kg, 09/30/21 15:06:00 EDT, Dry Weight Start Date: 03/29/23 Stop Date: 03/23/24 Status: Ordered Sudafed 12-Hour 120 mg oral tablet, extended release 1 tablet = 120 mg, By Mouth, Every 12 hours, PRN as needed for congestion, # 10 tablet, 0 Refills, Maintenance, 02/07/23 9:29:00 EST, ER Tablet, [facility]/pharmacy #[id number], Partial fill upon patient request if [...] Diagnosis Diagnosis Type Effective Dates Health Status inical Service Informant Conjunctivitis, left eye Discharge Diagnosis 05/03/23 Vital Signs Most recent to oldest [Reference Range]: 1 Height 174 cm (05/03/23 9:06 AM) Oxygen Saturation [94-100 %] 100 % (05/03/23 9:06 AM) Pulse Rate [55-90 bpm] 67 bpm (05/03/23 9:06 AM) Blood Pressure [90-138/55-84 mm Hg] 127/ 90mm Hg (05/03/23 9:06 AM) Respiratory Rate [16-30 br/min] 18 br/mi n (05/03/23 9:06 AM) Temperature [96.8-100.4 DegF] 97.6 DegF (05/03/23 9:06 AM) Mode of Delivery (Oxygen) Room air (05/03/23 9:06 AM) Blood pressure sites Arm, left (05/03/23 9:06 AM) Temperature Route Temporal (05/03/23 9:06 AM) Social History Social History Type Response Smoking Status Never smoker entered on: 10/29/13 Sex Patient Care team information Care Team Personnel Name: Dori Mendez NP Position: [facility] Associate Professional Member Role: Primary Care Nurse Address: Address: [address] [place] [address] Trauma and [place] [address]- Name: Mary Dos Santos NP Position: [facility] PCO Associate Professional Member Role: PCP Address: Address: [address] [place] [address] 3rd [place] [address]- Care Team Related Persons Name: GUILLAUME GONSALVES Address: home [address] [place] [address] Name: JENNIFER LAMA Name: RIKY WEAVER Address: home [address] [place] [address]
--- OUTSIDE RECORDS SUMMARY | 2023-07-04 16:59 | XMS_ITS | Continuity of Care Document ---
Author Organization [facility] Address [address] [place] [address]- Care Team Providers Care Architectural Design Lecturer Name Role Phone Raya LAYTON, Mary Arthur Primary Care Physician En[place] [facility] [place] Date(s): 06/22/20 - 06/29/20 [facility] [address] [place] [address]- Attending Physician: Jocelyn Beckham MD Referring Physician: Mary Dos Santos NP [...] Refills, Maintenance, 02/05/20 8:17:00 EST, Capsule, [id number], Partial fill upon patient request, 174, cm, [...] 1 Refills, Soft Stop, 04/18/20 16:54:00 EST, [facility]/pharmacy #[id number], Partial fill upon patient [...] each, 0 Refills, Maintenance, 11/13/19 9:12:00 EDT, [facility]/pharmacy #[id number], 174.5, cm, 11/13/19 8:16:00 EDT, Height, 89.1, kg, 01/12/19 19:27:00 EDT, Dry Weight Start Date: 11/13/19 Stop Date: 02/11/20 Status: Ordered levothyroxine 0.025 mg oral tablet 1 tablet = 25 mcg, By Mouth, Daily, # 90 tablet, 5 Refills, Maintenance, 11/13/19 14:24:00 EDT, Tablet, [facility]/pharmacy #[id number], 174.5, cm, 11/13/19 8:16:00 [...] oldest [Reference Range]: 1 Height 174 cm (06/22/20 3:50 PM) Oxygen Saturation [94-100 %] 100 % (06/22/20 3:50 PM) Pulse Rate [55-90 bpm] 69 bpm (06/22/20 3:50 PM) Blood Pressure [90-138/55-84 mm Hg] 149/ 114mm Hg *H* (06/22/20 3:50 PM) Respiratory Rate [16-30 br/min] 20 br/mi n (06/22/20 3:50 PM) Temperature [96.8-100.4 DegF] 98.9 DegF (06/22/20 3:50 PM) Mode of Delivery (Oxygen) Room air (06/22/20 3:50 PM) Blood pressure sites Arm, right (06/22/20 3:50 PM) Social History Social History Type Response Smoking Status Never smoker entered on: 10/29/13 Sex
--- OUTSIDE RECORDS SUMMARY | 2023-07-04 16:59 | XMS_ITS | Continuity of Care Document ---
Author Organization [facility] Address [address] [place] [address]- Care Team Providers Care Registered Land Surveyor Name Role Phone Raya LAYTON, Mary Arthur Primary Care Physician [place] [facility] [place] Date(s): 02/26/22 - 03/05/22 [facility] [address] [place] [address]- Encounter Diagnosis Strep throat(Discharge Diagnosis) - 02/26/22 Attending Physician: Ciarra Stahl NP Allergies, Adverse Reactions, Alerts Substance Reaction [...] 03/08/22 12:56:00 EST, 02/26/22 12:56:00 EST, Capsule, [id number], Partial fill upon patient request if the prescription is for a schedule II opioid drug.... Start Date: 02/26/22 Stop Date: 03/08/22 Status: Ordered amoxicillin-clavulanate 500 mg-125 mg oral tablet 1 tablet, By Mouth, Every 12 hours, for 10 days, # 20 tablet, 0 Refills, Acute 03/10/22 9:54:00 EST, 02/28/22 9:54:00 EST, Tablet, [id number], Partial fill upon [...] 0 Refills, Soft Stop, 02/24/22 18:07:00 EST, Tablet,[id number], Partial fill upon patient request if the prescription is for a schedule II opioid drug., 173.2, cm, 02/24/22 13:23:00 EST, Height,... Start Date: 02/24/22 Status: Ordered ipratropium nasal 21 mcg/inh spray 2 sprays, Nares, Both, 3 times a day, PRN Nasal Congestion, # 30 mL, 5 Refills, Maintenance, 02/01/22 10:29:00 EST, [place], [facility]/pharmacy #[id number], Partial fill upon patient request [...] 03/10/22 9:36:00 EST, 03/03/22 9:36:00 EST, Tablet, [id number], Partial fill upon patient request if the prescription is for a schedule II opioid drug., 173.2... Start Date: 03/03/22 Stop Date: 03/10/22 Status: Ordered penicillin V potassium 500 mg oral tablet 1 tablet = 500 mg, By Mouth, 3 times a day, for 10 days, # 30 tablet, 0 Refills, Acute 03/06/22 14:03:00 EST, 02/24/22 14:03:00 EST, Tablet, [id number], Partial fill upon patient request if the prescription is for a schedule II opioid drug., 1... Start Date: 02/24/22 Stop Date: 03/06/22 Status: Ordered Yuvafem 10 mcg vaginal tablet [...] tablet, 11 Refills, Maintenance, 03/03/22 13:32:00 EST, [facility]/pharmacy #[id number], Partial fill upon patient request if the prescription is for a schedule II opioid drug., 173.2, cm, 03/03/22 9:39... Start Date: 03/03/22 Status: Ordered Yuvafem 10 mcg vaginal tablet 1 tablet = 10 mcg, Vaginally, Every Tuesday and , # 24 tablet, 6 Refills, Maintenance, 12/08/21 9:20:00 EDT, [facility]/pharmacy #[id number], Partial fill upon patient request [...] Dates Health Status Cl inical Service Informant Strep throat Discharge Diagnosis 02/26/22 Vital Signs Most recent to oldest [Reference Range]: 1 Height 173.2 cm (02/26/22 11:00 AM) Weight 78.18 kg (02/26/22 11:00 AM) Body Mass Index [18.5-24.99 kg/m2] 26.06 kg/m2 *H* (02/26/22 11:00 AM) Mode of Delivery (Oxygen) Room air (02/26/22 11:00 AM) Blood pressure sites Arm, left (02/26/22 11:00 AM) Temperature Route Oral (02/26/22 11:00 AM) Weight Obtained Via Standing scale (02/26/22 11:00 AM) Social History Social History Type Response Smoking Status Never smoker entered on: 10/29/13 Sex Patient Care team information Care Team Personnel Name: Dori Mendez NP Position: [facility] Associate Professional Member Role: Primary Care Nurse Address: Address: [address] [place] [address] Trauma [place] [address]- Name: Mary Dos Santos NP Position: [facility] PCO Associate Professional Member Role: PCP Address: Address: [address] [place] [address] 3rd [place] [address]- Care Team Related Persons Name: GUILLAUME GONSALVES Address: home [address] [place] [address] Name: JENNIFER LAMA Name: RIKY WEAVER Address: home [address] [place] [address]
--- OUTSIDE RECORDS SUMMARY | 2023-07-04 16:59 | XMS_ITS | Continuity of Care Document ---
Author Organization [facility] Address [address] [place] [address]- Care Team Providers Care Custom Van Converter Name Role Phone Raya LAYTON, Mary Arthur Primary Care Physician Encounter [facility] [place] Date(s): 07/25/21 - 08/01/21 [facility] [address] [place] [address]- Attending Physician: Alexis Page DO Referring Physician: [...] 0 Refills, Soft Stop, 07/25/21 10:30:00 EDT, Tablet,[facility]/pharmacy #[id number], Partial fill upon patient request if the prescription is for a schedule II opioid drug., 175, cm, 07/25/21 10:01:00 EDT, Height, 99... Start Date: 07/25/21 Status: Ordered levothyroxine 0.025 mg oral tablet 1 tablet = 25 mcg, By Mouth, Daily, # 90 tablet, 4 Refills, Maintenance, 02/13/21 16:15:00 EST, Tablet, [facility]/pharmacy #[id number], 175.26, cm, 02/10/21 10:55:00 EST, [...] Refills, Maintenance, 04/20/21 10:35:00 EST, EC Capsule, [facility]/pharmacy #[id number], Partial fill upon patient request if the prescription is fora schedule II opioid drug., 175, cm, 04/20/21 10:05... Start Date: 04/20/21 Status: Ordered tiZANidine 2 mg oral tablet 2 mg, 1, tablet, By Mouth, Daily at bedtime, PRN, PRN spasm, # 30 tablet, Refills 0, Tot. Refills 0, Maintenance, as needed for muscle spasm, 01/09/21 7:45:00 EDT, Route to Pharmacy Electronically, [facility]/pharmacy #[id number], Partial fill upon patient request... Start Date: 01/09/21 Stop Date: 02/08/21 Status: Ordered Vagifem 10 mcg vaginal tablet 1 tablet = 10 mcg, Vaginally, Daily at bedtime, Insert one tablet daily x 2 weeks then twice weekly, # 18 tablet, 11 Refills, Maintenance, 07/01/21 16:26:00 EDT, [facility]/pharmacy #[id number], Partial fill uponpatient request if the [...] oldest [Reference Range]: 1 Height 175 cm (07/25/21 10:01 AM) Oxygen Saturation [94-100 %] 100 % (07/25/21 10:01 AM) Pulse Rate [55-90 bpm] 68 bpm (07/25/21 10:01 AM) Blood Pressure [90-138/55-84 mm Hg] 134/ 86mm Hg (07/25/21 10:01 AM) Temperature [96.8-100.4 DegF] 98.0 DegF (07/25/21 10:01 AM) Mode of Delivery (Oxygen) Room air (07/25/21 10:01 AM) Blood pressure sites Arm, right (07/25/21 10:01 AM) Temperature Route Temporal (07/25/21 10:01 AM) Social History Social History Type Response Smoking Status Never smoker entered on: 10/29/13 Sex
--- OUTSIDE RECORDS SUMMARY | 2023-07-04 16:59 | XMS_ITS | Continuity of Care Document ---
Author Organization [facility] Address [address] [place] [address] [address], [address] [place] [address]- Care Team Providers Care Side Boss Name Role Phone Raya LAYTON, Mary Arthur Primary Care Physician [place] [facility] [place] Date(s): 01/06/21 - 01/13/21 [facility] [address] [place] [address] Drive, [address] [place] [address]- Attending Physician: Tico Biggs MD Referring Physician: Mary Dos Santos NP [...] 4 Refills, Maintenance, 02/05/20 8:17:00 EST, Capsule, [facility]/pharmacy #[id number], Partial [...] 0 Refills, Maintenance, 11/21/20 7:39:00 EDT, Tablet, [facility]/pharmacy #[id number], 174, cm, 11/20/20 7:16:00 [...] 01/09/21 7:45:00 EDT, Route to Pharmacy Electronically, [facility]/pharmacy #[id number], Partial fill upon patient request... Start Date: 01/09/21 Stop Date: 02/08/21 Status: Ordered Problem List Condition Effective Dates Status Health Status Inform ant Cough(Confirmed) Active Endometriosis(Confirmed) Active Heart murmur(Confirmed) Active Hypothyroidism(Confirmed) Active Lumbar degenerative disc disease(Confirmed) 11/30/91 Active Tubular adenoma of colon(Confirmed) 12/02/11 Active Vulvar vestibulitis(Confirmed) Active Vital Signs Most recent to oldest [Reference Range]: 1 Height 175.26 cm (01/06/21 1:43 PM) Weight 99.0 kg (01/06/21 1:43 PM) Body Mass Index [18.5-24.99] 32.23 *>HHI* (01/06/21 1:43 PM) Social History Social History Type Response Smoking Status Never smoker entered on: 10/29/13 Sex
--- OUTSIDE RECORDS SUMMARY | 2023-07-04 16:59 | XMS_ITS | Continuity of Care Document ---
Author Organization [facility] e [facility] Address [address], 4t [address] [place] [address]- Care Team Providers Care Processing Mgr Name Role Phone Raya LIBRARIAN HELPER, Mary Arthur Primary Care Physician Encounter [facility] Date(s): 04/10/20 - 05/10/20 [facility] [address], 4th [address] [place] [address]- Allergies, Adverse Reactions, Alerts Substance Reaction Severity [...] Refills, Maintenance, 02/05/20 8:17:00 EST, Capsule, [id number], Partial fill upon patient request, 174, cm, [...] 1 Refills, Soft Stop, 04/18/20 16:54:00 EST, [facility]/pharmacy #[id number], Partial fill upon patient [...] 5 Refills, Maintenance, 11/13/19 14:24:00 EDT, Tablet, [facility]/pharmacy #[id number], 174.5, cm, 11/13/19 8:16:00 [...]
--- OUTSIDE RECORDS SUMMARY | 2023-07-04 16:59 | XMS_ITS | Continuity of Care Document ---
Author Organization [facility] Address [address] [place] [address]- Care Team Providers Care Wire Tester Name Role Phone Raya PLASTERER STUCCO, Mary Arthur Primary Care Physician En[place] [facility] [place] Date(s): 03/03/22 - 04/02/22 [facility] [address] [place] [address]- Allergies, Adverse Reactions, Alerts Substance Reaction Severity [...] Refills, Maintenance, 02/05/20 8:17:00 EST, Capsule, [id number], Partial fill upon patient request, 174, cm, [...] Refills, Maintenance, 02/01/22 10:28:00 EST, Tablet, [facility]/pharmacy #[id number], Partial fill upon patient request if the prescription is for a schedule II opioid drug., 173.2, cm, 02/01/22 10:12:0... Start Date: 02/01/22 Status: Ordered ipratropium nasal 21 mcg/inh spray 2 sprays, Nares, Both, 3 times a day, PRN Nasal Congestion, # 30 mL, 5 Refills, Maintenance, 02/01/22 10:29:00 EST, [place], [id number], Partial fill upon patient request if the prescription isfor a schedule II opioid drug., 2 sprays Nares, Bot... Start Date: 02/01/22 Status: Ordered levothyroxine 0.025 mg oral tablet 1 tablet = 25 mcg, By Mouth, Daily, # 90 tablet, 4 Refills, Maintenance, 12/08/21 9:25:00 EDT, Tablet, [facility]/pharmacy #[id number], 173.2, cm, 12/08/21 9:15:00 EDT, Height, [...] Team Personnel Name: Dori Mendez NP Position: [facility] Associate Professional Member Role: Primary Care Nurse Address: Address: [address] [place] [address] Trauma and [place] [address]- Name: Raya LAYTON, Mary Arthur Position: [facility] PCO Associate Professional Member Role: PCP Address: Address: [address] [place] [address] [address] [place] [address]- Care Team Related Persons Name: GUILLAUME GONSALVES Address: home [address] [place] [address] Name: JENNIFER LAMA Name: RIKY WEAVER Address: home [address] [place] [address]
--- OUTSIDE RECORDS SUMMARY | 2023-07-04 17:00 | XMS_ITS | Continuity of Care Document ---
Author Organization [facility] Address [address] [place] [address]- Care Team Providers Care Bogger Operator Name Role Phone Raya LAYTON, Mary Arthur Primary Care Physician [place] [facility] [place]s): 12/03/19 - 01/02/[address] [facility] [address] [address]- [facility] Attending Physician: Admbrendon, Wilbert8 Admitting Physician: Admtr, Ar8 Referring Physician: [...] each, 0 Refills, Maintenance, 11/13/19 9:12:00 EDT, [facility]/pharmacy #[id number], 174.5, cm, 11/13/19 8:16:00 EDT, Height, 89.1, kg, 01/12/19 19:27:00 EDT, Dry Weight Start Date: 11/13/19 Stop Date: 02/11/20 Status: Ordered levothyroxine 0.025 mg oral tablet 1 tablet = 25 mcg, By Mouth, Daily, # 90 tablet, 5 Refills, Maintenance, 11/13/19 14:24:00 EDT, Tablet, [facility]/pharmacy #[id number], 174.5, cm, 11/13/19 8:16:00 [...]
--- OUTSIDE RECORDS SUMMARY | 2023-07-04 17:00 | XMS_ITS | Continuity of Care Document ---
Author Organization [facility] Address Unknown Care Team Providers Care Blanket Winder Helper Name Role Phone Raya LAYTON, Mary Arthur Primary Care Physician En[place] [facility] [place] Date(s): 07/02/21 - 07/09/21 [facility] Attending Physician: Lizeth Kim MD Referring Physician: Mary Dos Santos NP [...] Refills, Maintenance, 02/05/20 8:17:00 EST, Capsule, [id number], Partial fill upon patient request, 174, cm, 02/05/20 7:47:00 EST, Height, 89.1, kg, 01/12/19 19:27:00 EDT, Dry... Start Date: 02/05/20 Stop Date: 07/04/20 Status: Ordered Centrum By Mouth, Daily, 0 Refills, Maintenance, 11/13/19 8:20:00 EDT Start Date: 11/13/19 Status: Ordered Diflucan 150 mg oral tablet 1 tablet = 150 mg, By Mouth, Once, # 1 tablet, 1 Refills, Soft Stop, 07/02/21 15:16:00 EDT, [facility]/pharmacy #[id number], Partial fill upon patient request if the prescription is for a schedule II opioid drug., 175, cm, 07/02/21 13:47:00 EDT, Height, 99, kg, 09... Start Date: 07/02/21 Status: Ordered levothyroxine 0.025 mg oral tablet 1 tablet = 25 mcg, By Mouth, Daily, # 90 tablet, 4 Refills, Maintenance, 02/13/21 16:15:00 EST, Tablet, [facility]/pharmacy #[id number], 175.26, cm, 02/10/21 10:55:00 [...] Refills, Maintenance, 04/20/21 10:35:00 EST, EC Capsule, [facility]/pharmacy #[id number], Partial fill [...] 01/09/21 7:45:00 EDT, Route to Pharmacy Electronically, [facility]/pharmacy #[id number], Partial fill upon patient request... Start Date: 01/09/21 Stop Date: 02/08/21 Status: Ordered Vagifem 10 mcg vaginal tablet 1 tablet = 10 mcg, Vaginally, Daily at bedtime, Insert one tablet daily x 2 weeks then twice weekly, # 18 tablet, 11 Refills, Maintenance, 07/01/21 16:26:00 EDT, [facility]/pharmacy #[id number], Partial fill uponpatient request if the prescription [...] oldest [Reference Range]: 1 Height 175 cm (07/02/21 1:47 PM) Weight 103.3 kg (07/02/21 1:47 PM) Pulse Rate [55-90 bpm] 97 bpm *H* (07/02/21 1:47 PM) Body Mass Index [18.5-24.99] 33.73 *>HHI* (07/02/21 1:47 PM) Blood Pressure [90-138/55-84 mm Hg] 142/ 74mm Hg *H* (07/02/21 1:47 PM) Blood pressure sites Arm, right (07/02/21 1:47 PM) Weight Obtained Via Standing scale (07/02/21 1:47 PM) Social History Social History Type Response Smoking Status Never smoker entered on: 10/29/13 Sex
--- OUTSIDE RECORDS SUMMARY | 2023-07-04 17:00 | XMS_ITS | Continuity of Care Document ---
Author Organization [facility] Address [address] [place] [address]- Care Team Providers Care Form Setter Helper Name Role Phone Raya LAYTON, Mary Arthur Primary Care Physician Encounter [facility] Date(s): 02/24/22 - 03/03/22 [facility] [address] [place] [address]- Attending Physician: Maddie Toledo MD Referring Physician: [...] 03/08/22 12:56:00 EST, 02/26/22 12:56:00 EST, Capsule, [facility]/pharmacy #[id number], Partial fill upon patient request if [...] 11 Refills, Maintenance, 02/01/22 10:28:00 EST, Tablet, [facility]/pharmacy #[id number], Partial fill upon patient request if [...] mL, 5 Refills, Maintenance, 02/01/22 10:29:00 EST, [place], [facility]/pharmacy #[id number], Partial fill upon patient request if the prescription isfor a schedule II opioid drug., 2 sprays Nares, Bot... Start Date: 02/01/22 Status: Ordered levothyroxine 0.025 mg oral tablet 1 tablet = 25 mcg, By Mouth, Daily, # 90 tablet, 4 Refills, Maintenance, 12/08/21 9:25:00 EDT, Tablet, [facility]/pharmacy #[id number], 173.2, cm, 12/08/21 9:15:00 EDT, Height, [...] 03/10/22 9:36:00 EST, 03/03/22 9:36:00 EST, Tablet, [facility]/pharmacy #[id number], Partial fill upon patient request if the prescription is for a schedule II opioid drug., 173.2... Start Date: 03/03/22 Stop Date: 03/10/22 Status: Ordered penicillin V potassium 500 mg oral tablet 1 tablet = 500 mg, By Mouth, 3 times a day, for 10 days, # 30 tablet, 0 Refills, Acute 03/06/22 14:03:00 EST, 02/24/22 14:03:00 EST, Tablet, [facility]/pharmacy #[id number], Partial fill upon patient request if the prescription is for a schedule II opioid drug., 1... Start Date: 02/24/22 Stop Date: 03/06/22 Status: Ordered polymyxin B-trimethoprim ophthalmic 81097 u-1 mg/ml solution 1 drops, Eyes, Both, 4 times a day, for 5 days, # 5 mL, 0 Refills, Acute 03/05/22 9:55:00 EST, 02/28/22 9:55:00 EST, [place], [id number], Partial fill upon patient request if the prescription is for a schedule II opioid drug., 1 drops Eyes, B... Start Date: 02/28/22 Stop Date: 03/05/22 Status: Ordered Yuvafem 10 mcg vaginal tablet [...] tablet, 11 Refills, Maintenance, 03/03/22 13:32:00 EST, [id number], Partial fill upon patient [...] oldest [Reference Range]: 1 Height 173.2 cm (02/24/22 1:23 PM) Oxygen Saturation [94-100 %] 100 % (02/24/22 1:23 PM) Pulse Rate [55-90 bpm] 89 bpm (02/24/22 1:23 PM) Blood Pressure [90-138/55-84 mm Hg] 117/ 79mm Hg (02/24/22 1:23 PM) Respiratory Rate [16-30 br/min] 16 br/mi n (02/24/22 1:23 PM) Temperature [96.8-100.4 DegF] 98.2 DegF (02/24/22 1:23 PM) Mode of Delivery (Oxygen) Room air (02/24/22 1:23 PM) Temperature Route Temporal (02/24/22 1:23 PM) Social History Social History Type Response Smoking Status Never smoker entered on: 10/29/13 Sex Note * Myron Pacheco: PERFORM, SIGN, VERIFY Event Display: Patient Education/Instruction Authored Date: [id number] [facility] Clinical Summary Name JOÃO WEAVER Age 57 Years 1965 PCP Raya LAND CONSERVATION SPECIALIST, Mary Arthur PCP Visit Date 02/24/2022 10:09:00 Additional Instructions: Scheduled Appointments?? Future Appointments ?*[facility] ?[address] ?[address] ?[place],??[place],??[address] ?Phone:??--?Fax:??-- ?Appt. Date:??03/03/2022?1:40 PM ?Scheduled Provider:??Gaby Abdul MD ?*[facility] ?[address]??[place],??[place],??[address] ?Phone:??--?Fax:??-- ?Appt. Date:??03/09/2022?7:40 AM ?Scheduled Provider:??Raya LAYTON, Mary Arthur ?*[facility] ?[address]??[place],??[place],??[address] ?Phone:??--?Fax:??-- ?Appt. Date:??04/19/2022?4:15 PM ?Scheduled Provider:??Rad Vasquez MD Follow-Up Instructions ?? Diagnosis Medications: Please continue your medications until treatment is completed or stopped by your provider. Discuss any questions related to medications with your provider. New Medications [facility]/pharmacy #[id number], [address], [place] [id number], [phone] penicillin V potassium (penicillin V potassium 500 mg oral tablet) 1 tab(s) Oral 3 times a day for 10 Days. Refills: 0. Next Dose: Medications to Continue [...] Height 173.2 cm Weight BMI Blood Pressure 117 mm Hg/79 mm Hg Temperature 98.2 DegF Pulse Rate 89 bpm Respiratory Rate 16 br/min 02 Sat Mode of Delivery 100 %/Room air You can now view a summary of your hospital visit from the comfort of your home through a free online portal called [email or web address]. [email or web address] is a website that allows you to securely view your medical information including discharge summary, medications and follow-up visits. ??You can alsosend a secure electronic message to your doctor???s office to request appointments, renew medications or just ask a question. You can enroll at [email or web address] or register during your next office visit. [...] primary care provider, you may find a [facility] provider by calling [facility] at [phone]. For information about the plan of care [...] Member Role: Primary Care Nurse Address: Address: [address] [place] [address] Trauma [place] [address]- [place] Name: Mary Dos Santos NP Position: [facility] PCO Associate Professional Member Role: PCP Address: Address: [address] [place] [address] 3rd [place] [address]- [place] Care Team Related Persons Name: GUILLAUME GONSALVES Address: home [address] [place] [address] Name: JENNIFER LAMA Name: RIKY WEAVER Address: home [address] [place] [address]
--- OUTSIDE RECORDS SUMMARY | 2023-07-04 17:00 | XMS_ITS | Continuity of Care Document ---
Author Organization [facility] Address [address] [facility], 4t h Floor [address] [place] [address]- Care Team Providers Care Health Director Name Role Phone Raya PAINTING MACHINE OPERATOR, Mary Arthur Primary Care Physician Encounter [facility] Date(s): 04/10/20 - 05/10/20 [facility] [address] [facility], 4th [address] [place] [address]- Allergies, Adverse Reactions, Alerts Substance Reaction Severity [...] Refills, Maintenance, 02/05/20 8:17:00 EST, [place], [id number], Partial fill upon patient request, 174, cm, [...] 1 Refills, Soft Stop, 04/18/20 16:54:00 EST, [facility]/pharmacy #[id number], Partial fill upon patient request [...] 5 Refills, Maintenance, 11/13/19 14:24:00 EDT, Tablet, [facility]/pharmacy #[id number], 174.5, cm, 11/13/19 8:16:00 EDT, [...]
--- OUTSIDE RECORDS SUMMARY | 2023-07-04 17:00 | XMS_ITS | Continuity of Care Document ---
Author Organization [facility] Address [address] [place] [address]- Care Team Providers Care Rotary Drill Operator Name Role Phone Raya UMBRELLA REPAIRER, Mary Arthur Primary Care Physician Encounter [facility] Date(s): 02/01/22 - 03/03/22 [facility] [address] [facility] [address] [place] [address]- Attending Physician: Willam Sin Admitting Physician: Willam [...] mL, 5 Refills, Maintenance, 02/01/22 10:29:00 EST, [place], [facility]/pharmacy #[id number], Partial fill upon patient request if the prescription isfor a schedule II opioid drug., 2 sprays Nares, Bot... Start Date: 02/01/22 Status: Ordered levothyroxine 0.025 mg oral tablet 1 tablet = 25 mcg, By Mouth, Daily, # 90 tablet, 4 Refills, Maintenance, 12/08/21 9:25:00 EDT, Tablet, [facility]/pharmacy #[id number], 173.2, cm, 12/08/21 9:15:00 EDT, [...] 03/10/22 9:36:00 EST, 03/03/22 9:36:00 EST, Tablet, [facility]/pharmacy #[id number], Partial fill upon patient [...] Date: 03/06/22 Status: Ordered polymyxin B-trimethoprim ophthalmic 36219 u-1 mg/ml solution 1 drops, Eyes, Both, [...] tablet, 11 Refills, Maintenance, 03/03/22 13:32:00 EST, [facility]/pharmacy #[id number], Partial fill upon patient [...] Team Personnel Name: Dori Mendez NP Position: [facility] Associate Professional Member Role: Primary Care Nurse Address: Address: [address] [facility] Trauma and [place] [address]- [place] Name: Raya LAYTON, Mary Arthur Position: [facility] PCO Associate Professional Member Role: PCP Address: Address: [address] [place] [address] 3rd Floor [facility] [place] [address]- Care Team Related Persons Name: GUILLAUME GONSALVES Address: home [address] [place] [address] Name: JENNIFER LAMA Name: RIKY WEAVER Address: home [address] [place] [address]
--- OUTSIDE RECORDS SUMMARY | 2023-07-04 17:00 | XMS_ITS | Continuity of Care Document ---
Author Organization [facility] Address [address] [facility], 4t h Floor [address] [place] [address]- Care Team Providers Care Jewelry Finisher Name Role Phone Raya LAYTON, Mary Arthur Primary Care Physician Encounter [facility] Date(s): 12/08/21 - 01/07/22 [facility] [address] [facility], 4th Floor [address] [place], [place] [address] Attending Physician: Admtr, Ar8 Allergies, Adverse Reactions, [...] 4 Refills, Maintenance, 12/08/21 9:25:00 EDT, Tablet, [facility]/pharmacy #[id number], 173.2, cm, 12/08/21 9:15:00 EDT, [...] Name: Raya LAYTON, Mary Arthur Address: Address: [address] [place] [address]
--- OUTSIDE RECORDS SUMMARY | 2023-07-04 17:00 | XMS_ITS | Continuity of Care Document ---
Author Organization [facility] Address Unknown Care Team Providers Care Supervisor Pigment Making Name Role Phone Raya LAYTON, Mary Arthur Primary Care Physician [place] [facility] Date(s): 05/21/21 - 06/20/21 [facility] Allergies, Adverse Reactions, Alerts [...] Refills, Maintenance, 02/05/20 8:17:00 EST, [place], [id number], Partial fill upon patient request, 174, cm, 02/05/20 7:47:00 EST, Height, 89.1, kg, 01/12/19 19:27:00 EDT, Dry... Start Date: 02/05/20 Stop Date: 07/04/20 Status: Ordered Centrum By Mouth, Daily, 0 Refills, Maintenance, 11/13/19 8:20:00 EDT Start Date: 11/13/19 Status: Ordered Estrace Vaginal Cream 0.1 mg/g = 1 Gm, Vaginally, Daily at bedtime, Apply 1 gram vaginally at bedtime daily for 2 weeks. After 2 weeks apply vaginally twice weekly., # 30 Gm, 3 Refills, Maintenance, 05/25/21 14:48:00 EDT, [facility]/pharmacy #[id number], Partial fill upon patient request if th... Start Date: 05/25/21 Status: Ordered levothyroxine 0.025 mg oral tablet 1 tablet = 25 mcg, By Mouth, Daily, # 90 tablet, 4 Refills, Maintenance, 02/13/21 16:15:00 EST, Tablet, [facility]/pharmacy #[id number], 175.26, cm, 02/10/21 10:55:00 [...] Refills, Maintenance, 04/20/21 10:35:00 EST, EC Capsule, [facility]/pharmacy #[id number], Partial fill upon patient [...] 01/09/21 7:45:00 EDT, Route to Pharmacy Electronically, [facility]/pharmacy #[id number], Partial fill upon patient request... [...]
--- OUTSIDE RECORDS SUMMARY | 2023-07-04 17:00 | XMS_ITS | Continuity of Care Document ---
Author Organization [facility] Address [address] [place] [address] [address], [address] [place] [address]- Care Team Providers Care Vehicle Check In Clerk Name Role Phone Raya PROSECUTING ATTORNEY, Mary Arthur Primary Care Physician Encounter [facility] Date(s): 12/15/20 - 01/14/21 [facility] [address] [place] [address] Drive, [address] [place] [address]- Allergies, Adverse Reactions, Alerts Substance Reaction Severity [...] Refills, Maintenance, 02/05/20 8:17:00 EST, [place], [id number], Partial fill upon patient request, 174, cm, 02/05/20 7:47:00 EST, Height, 89.1, kg, 01/12/19 19:27:00 EDT, Dry... Start Date: 02/05/20 Stop Date: 07/04/20 Status: Ordered Centrum By Mouth, Daily, 0 Refills, Maintenance, 11/13/19 8:20:00 EDT Start Date: 11/13/19 Status: Ordered levothyroxine 0.025 mg oral tablet 1 tablet = 25 mcg, By Mouth, Daily, # 90 tablet, 0 Refills, Maintenance, 11/21/20 7:39:00 EDT, Tablet, [facility]/pharmacy #[id number], 174, cm, 11/20/20 7:16:00 EDT, Height, 89.1, [...] 01/09/21 7:45:00 EDT, Route to Pharmacy Electronically, [facility]/pharmacy #[id number], Partial fill upon patient request... Start Date: [...]
--- OUTSIDE RECORDS SUMMARY | 2023-07-04 17:00 | XMS_ITS | Continuity of Care Document ---
Author Organization [facility] Address [address] [place] [address]- Care Team Providers Care Assistant Professor Sculpture Name Role Phone Raya LAYTON, Mary Arthur Primary Care Physician Encounter [facility] Date(s): 07/10/20 - 07/17/20 [facility] [address] [place] [address]- Encounter Diagnosis Right ankle pain(Discharge Diagnosis) - 07/10/20 Attending Physician: Mary Dos Santos NP Allergies, [...] Refills, Maintenance, 02/05/20 8:17:00 EST, [place], [id number], Partial fill upon patient request, 174, cm, [...] Dates Health Status Cl inical Service Informant Right ankle pain Discharge Diagnosis 07/10/20 Social History Social History Type Response Smoking Status Never smoker entered on: 10/29/13 Sex
--- OUTSIDE RECORDS SUMMARY | 2023-07-04 17:00 | XMS_ITS | Continuity of Care Document ---
Author Organization [facility] Address Unknown Care Team Providers Care Rn Pediatric Icu Name Role Phone Raya LAYTON, Mary Arthur Primary Care Physician Encounter [facility] Date(s): 05/20/21 - 05/27/21 [facility] Attending Physician: Lizeth Kim MD [...] Refills, Maintenance, 02/05/20 8:17:00 EST, [facility], [id number], Partial fill upon patient request, 174, cm, [...] Gm, 3 Refills, Maintenance, 05/25/21 14:48:00 EDT, [facility]/pharmacy #[id number], Partial fill upon patient request if th... Start Date: 05/25/21 Status: Ordered levothyroxine 0.025 mg oral tablet 1 tablet = 25 mcg, By Mouth, Daily, # 90 tablet, 4 Refills, Maintenance, 02/13/21 16:15:00 EST, Tablet, [facility]/pharmacy #[id number], 175.26, cm, 02/10/21 10:55:00 EST, Height, [...] Refills, Maintenance, 04/20/21 10:35:00 EST, EC Capsule, [facility]/pharmacy #[id number], Partial fill upon patient request if [...] EDT, Route to Pharmacy Electronically, [facility]/pharmacy #[id number], Partial fill upon patient request... Start [...] oldest [Reference Range]: 1 Height 175 cm (05/20/21 8:00 AM) Weight Obtained Via Standing scale (05/20/21 8:00 AM) Social History Social History Type Response Smoking Status Never smoker entered on: 10/29/13 Sex
--- OUTSIDE RECORDS SUMMARY | 2023-07-04 17:00 | XMS_ITS | Continuity of Care Document ---
Author Organization [facility] Address [address] [place] [address]- Care Team Providers Care Sales Systems Engineer Name Role Phone Raya LAYTON, Mary Arthur Primary Care Physician Encounter [facility] Date(s): 06/07/19 - 01/02/20 [facility] [address] [address]- [facility] Attending Physician: Froilan Blake MD Admitting Physician: Froilan Blake MD Referring Physician: Mary Dos Santos NP [...] each, 0 Refills, Maintenance, 11/13/19 9:12:00 EDT, [facility]/pharmacy #[id number], 174.5, cm, 11/13/19 8:16:00 EDT, Height, 89.1, kg, 01/12/19 19:27:00 EDT, Dry Weight Start Date: 11/13/19 Stop Date: 02/11/20 Status: Ordered levothyroxine 0.025 mg oral tablet 1 tablet = 25 mcg, By Mouth, Daily, # 90 tablet, 5 Refills, Maintenance, 11/13/19 14:24:00 EDT, Tablet, [facility]/pharmacy #[id number], 174.5, cm, 11/13/19 8:16:00 EDT, [...]
--- OUTSIDE RECORDS SUMMARY | 2023-07-04 17:00 | XMS_ITS | Continuity of Care Document ---
Author Organization [facility] Address [address] [facility], 4t [address] [place] [address]- Care Team Providers Care Administration Clerk Name Role Phone Raya STEAM PAN SPONGER, Mary Arthur Primary Care Physician Encounter [facility] Date(s): 11/09/19 - 12/09/19 [facility] [address] [facility], 4th Floor [address] [place] [address]- [facility] Allergies, Adverse Reactions, Alerts Substance Reaction Severity [...] each, 0 Refills, Maintenance, 11/13/19 9:12:00 EDT, [facility]/pharmacy #[id number], 174.5, cm, 11/13/19 8:16:00 EDT, Height, 89.1, kg, 01/12/19 19:27:00 EDT, Dry Weight Start Date: 11/13/19 Stop Date: 02/11/20 Status: Ordered levothyroxine 0.025 mg oral tablet 1 tablet = 25 mcg, By Mouth, Daily, # 90 tablet, 5 Refills, Maintenance, 11/13/19 14:24:00 EDT, Tablet, [facility]/pharmacy #[id number], 174.5, cm, 11/13/19 8:16:00 EDT, [...]
--- OUTSIDE RECORDS SUMMARY | 2023-07-04 17:00 | XMS_ITS | Continuity of Care Document ---
Author Organization [facility] e Medicine Address Unknown Care Team Providers Care Rehabilitation Coordinator Name Role Phone Raya LAYTON, Mary Arthur Primary Care Physician En[place] [facility] Date(s): 05/20/21 - 06/19/21 [facility] Rep[facility] Attending Physician: Admtr, Willam Allergies, Adverse Reactions, Alerts Substance Reaction Severity [...] Refills, Maintenance, 02/05/20 8:17:00 EST, [facility], [id number], Partial fill upon patient request, 174, cm, [...] 3 Refills, Maintenance, 05/25/21 14:48:00 EDT, [facility]/pharmacy #[id number], Partial fill upon patient request if th... Start Date: 05/25/21 Status: Ordered levothyroxine 0.025 mg oral tablet 1 tablet = 25 mcg, By Mouth, Daily, # 90 tablet, 4 Refills, Maintenance, 02/13/21 16:15:00 EST, Tablet, [facility]/pharmacy #[id number], 175.26, cm, 02/10/21 10:55:00 [...] Maintenance, 04/20/21 10:35:00 EST, EC Capsule, [facility]/pharmacy #[id number], Partial fill [...] EDT, Route to Pharmacy Electronically, [facility]/pharmacy #[id number], Partial fill upon patient request... Start [...]
--- OUTSIDE RECORDS SUMMARY | 2023-07-04 17:00 | XMS_ITS | Continuity of Care Document ---
Author Organization [facility] Adult Address [address] [place] [address]- Care Team Providers Care Biomed Tech Name Role Phone Mary Dos Santos NP Primary Care Physician [place] [facility] [place] 04/[place]/23 [facility] Adult [address] [place] [address]- Encounter Diagnosis Physical exam(Discharge Diagnosis) - 03/29/23 Endometriosis(Discharge Diagnosis) - 03/29/23 Heart murmur(Discharge Diagnosis) - 03/29/23 Hypothyroidism(Discharge Diagnosis) - 03/29/23 Tubular adenoma of colon(Discharge Diagnosis) - 03/29/23 Lumbar degenerative disc disease(Discharge Diagnosis) - 03/29/23 Attending Physician: Mary Dos Santos NP Allergies, [...] acel(Tdap) 12/11/14 Given Tetanus-Diphth Toxoids, Adult (oldterm) 6 G iven 1Admin Note: Declined 2Result Comment: [05/07/2015] [facility] Medications benzonatate 100 mg oral capsule 1 [...] mL, 5 Refills, Maintenance, 02/01/22 10:29:00 EST, [place], [id number], Partial fill upon patient request if the prescription isfor a schedule II opioid drug., 2 sprays Nares, Bot... Start Date: 02/01/22 Status: Ordered levothyroxine 0.025 mg oral tablet 1 tablet = 25 mcg, By Mouth, Daily, # 90 tablet, 3 Refills, Maintenance, 03/29/23 7:54:00 EST, Table[place], [id number], 174, cm, 03/29/23 7:46:00 EST, Height, [...] Clinical Service Informant Physical exam Discharge Diagnosis 03/29/23 Endometriosis Discharge Diagnosis 03/29/23 Heart murmur Discharge Diagnosis 03/29/23 Hypothyroidism Discharge Diagnosis 03/29/23 Tubular adenoma of colon Discharge Diagnosis 03/29/23 Lumbar degenerative disc disease Discharge Diagnosis 03/29/23 Vital Signs Most recent to oldest [Reference Range]: 1 2 Height 174 cm (03/29/23 8:08 AM) 174 cm (03/29/23 7:46 AM) Weight 81.0 kg (03/29/23 7:46 AM) Oxygen Saturation [94-100 %] 99 % (03/29/23 7:46 AM) Pulse Rate [55-90 bpm] 73 bpm (03/29/23 7:46 AM) Body Mass Index [18.5-24.99 kg/m2] 26.75 kg/m2 *H* (03/29/23 7:46 AM) Blood Pressure [90-138/55-84 mm Hg] 108/ 78mm Hg (03/29/23 8:08 AM) 102/68mm Hg (03/29/23 7:46 AM) Mode of Delivery (Oxygen) Room air (03/29/23 7:46 AM) Blood pressure sites Arm, left (03/29/23 8:08 AM) Arm, left (03/29/23 7:46 AM) Weight Obtained Via Standing scale (03/29/23 7:46 AM) Social History Social History Type Response Smoking Status Never smoker entered on: 10/29/13 Sex Note * Demi Alanis: PERFORM, SIGN, VERIFY Event Display: Patient Education/Instruction Authored Date: [id number] [facility] *[facility] Clinical Summary Name JOÃO WEAVER Age 58 Years 1965 PCP Raya LAYTON, Mary Arthur PCP Visit Date 03/29/2023 07:28:00 Additional Instructions: Physical in one year Scheduled Appointments?? Future Appointments ?*[facility]hab[facility] ?Phone:??--?Fax:??-- ?Appt. Date:??04/05/2023?12:30 PM ?Scheduled Provider:??Conca , Andree ?*[facility] ?[address]??[place],??[place],??[address] ?Phone:??--?Fax:??-- ?Appt. Date:??05/19/2023?11:15 AM ?Scheduled Provider:??Christina NUGENT, Rad Follow-Up Instructions ?? Diagnosis Encounter for general adult medical examination without abnormal findings; Endometriosis, unspecified; Cardiac murmur, unspecified; Benign neoplasm of colon, unspecified; Other intervertebral disc degeneration, lumbar region; Hypothyroidism, unspecified Medications: Please continue your medications until treatment is completed or stopped by your provider. Discuss any questions related to medications with your provider. Medications to Continue Taking That Have Changed [id number], [address], [place] [id number], [phone] - Levothyroxine (levothyroxine 0.025 mg oral tablet) 1 tab(s) Oral Daily for 90 Days. Refills: 3. Next Dose: Medications to Continue with No Changes These medications were not printed or sent to your pharmacy Benzonatate (benzonatate 100 mg oral capsule) 1 capsule Oral 3 times a day as needed Cough. Refills: 0. Next Dose: Celecoxib (CeleBREX 200 mg oral capsule) 1 capsule Oral Daily as needed for pain for 30 Days. Refills: 4. Next Dose: Estradiol Topical (Yuvafem 10 mcg vaginal tablet) 1 tab(s) Vaginally Daily at Bedtime. Next Dose: Famotidine (famotidine 40 mg oral tablet) 1 tab(s) Oral Daily at Bedtime. Refills: 11. Next Dose: Fluticasone Nasal (Flonase Allergy Relief 50 mcg/inh nasal spray) 1 spray(s) Nares, Both Daily. Refills: 0. Next Dose: Ipratropium Nasal (ipratropium nasal 21 mcg/inh spray) 2 spray(s) Nares, Both 3 times a day as needed Nasal Congestion. Refills: 5. Next Dose: Multivitamin With Minerals (Centrum) Oral Daily. Next Dose: Pseudoephedrine (Sudafed 12-Hour 120 mg oral tablet, extended release) 1 tab(s) Oral every 12 hoursas needed as needed for congestion. Refills: 0. Next Dose: No Longer Take the Following Medications Azithromycin (Azithromycin 5 Day Dose Pack 250 mg oral tablet) 1 pack/packet Oral once. Refills: 0. Fluconazole (fluconazole 150 mg oral tablet) 1 tab(s) Oral once. Repeat dose if still having symptoms in 72 hours. Refills: 0. Fluconazole (fluconazole 150 mg oral tablet) 1 tab(s) Oral once. Refills: 0. Allergy Info:?? oxyCODONE; fentaNYL; Percocet 7.5/325; Vicodin; aspirin Medications Given This Visit Future Orders ?CBC w/ Differential? Order Date:03/29/23?- Complete on or after?03/29/23 ?Lipid Panel? Order Date:03/29/23?- Complete on or after?03/29/23 ?Comprehensive Metabolic Panel? Order Date:03/29/23?- Complete on or after?03/29/23 ?Vitamin D 25 Hydroxy Level? Order Date:03/29/23?- Complete on or after?03/29/23 ?Hemoglobin A1C (Monitoring)? Order Date:03/29/23?- Complete on or after?03/29/23 ?TSH with T4 Reflex (Adults Only)? Order Date:03/29/23?- Complete on or after?03/29/23 ?Complete Urinalysis/Reflex Culture? Order Date:03/29/23?- Complete on or after?03/29/23 Vital Signs Height 174 cm Weight 81.0 kg BMI 26.75 kg/m2 Blood Pressure 108 mm Hg/78 mm Hg Temperature Pulse Rate 73 bpm Respiratory Rate 02 Sat Mode of Delivery 99 %/Room air You can now view a summary of your hospital visit from the comfort of your home through a free online portal called [employer]. [employer] is a website that allows you to securely view your medical information including discharge summary, medications and follow-up visits. ??You can alsosend a secure electronic message to your doctor???s office to request appointments, renew medications or just ask a question. You can enroll at [email or web address] or register during your next office visit. [...] primary care provider, you may find a [facility] provider by calling [facility] [employer] Link at [phone]. [facility], in keeping with [facility] guidance, no longer requires face masks for staff, patientsor visitors in most situations. Similar to time spent indoors at other locations, there is the chance that you were exposed to respiratory viruses during your time with us (such as flu or COVID-19).? If you develop symptoms concerning for a viral respiratory infection, please seek testing (and treatment if indicated) from your medical provider or home test kit. For information about the plan of care [...] Team Personnel Name: Dori Mendez NP Position: [facility] Associate Professional Member Role: Primary Care Nurse Address: Address: [address] [place] [address] Trauma and [place] [address]- Name: Mary Dos Santos NP Position: [facility] PCO Associate Professional Member Role: PCP Address: Address: [address] [place] [address] [address]rd [place] [address]- Care Team Related Persons Name: GUILLAUME GONSALVES Address: home [address] [place] [address] Name: JENNIFER LAMA Name: RIKY WEAVER Address: home [address] [place] [address]
--- OUTSIDE RECORDS SUMMARY | 2023-07-04 17:00 | XMS_ITS | Continuity of Care Document ---
Author Organization [facility] Address [address] [place] [address]- Care Team Providers Care Tree Sapper Name Role Phone Raya LAYTON, Mary Arthur Primary Care Physician [place] [facility] [place]12/19 [facility] [address] [place] [address]- [facility] Attending Physician: Willam Sin Admitting Physician: AdmWillam olivas Referring Physician: AdmtrWillam Allergies, Adverse Reactions, Alerts [...]
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
--- OUTSIDE RECORDS SUMMARY | 2023-07-04 17:00 | XMS_ITS | Continuity of Care Document ---
Author Organization [facility] Address [address] [place], [place] [address]marylin mcdonald, [address] [place] [address]- Care Team Providers Care Cheese Pancake Roller Name Role Phone Raya LICENSED SALES ASSISTANT, Mary Arthur Primary Care Physician En[place] [facility] [place] Date(s): 10/22/20 - 11/21/20 [facility] [address] [place] [address] Drive, [address] [place] [address]- Allergies, Adverse Reactions, Alerts Substance Reaction Severity [...] Refills, Maintenance, 02/05/20 8:17:00 EST, [place], [id number], Partial fill upon patient request, 174, cm, [...] 0 Refills, Maintenance, 11/21/20 7:39:00 EDT, Tablet, [facility]/pharmacy #[id number], 174, cm, 11/20/20 [...]
--- OUTSIDE RECORDS SUMMARY | 2023-07-04 17:00 | XMS_ITS | Continuity of Care Document ---
Author Organization [facility] Address [address] [place] [address]- Care Team Providers Care Shoeblack Name Role Phone Raya LAYTON, Mary Arthur Primary Care Physician En[place] [facility] [place] Date(s): 02/27/21 - 03/29/21 [facility] [address] [place] [address]- Attending Physician: Willam Sin Admitting Physician: AdmtrWillam [...] Refills, Maintenance, 02/05/20 8:17:00 EST, [place], [id number], Partial fill upon patient request, 174, cm, 02/05/20 7:47:00 EST, Height, 89.1, kg, 01/12/19 19:27:00 EDT, Dry... Start Date: 02/05/20 Stop Date: 07/04/20 Status: Ordered Centrum By Mouth, Daily, 0 Refills, Maintenance, 11/13/19 8:20:00 EDT Start Date: 11/13/19 Status: Ordered levothyroxine 0.025 mg oral tablet 1 tablet = 25 mcg, By Mouth, Daily, # 90 tablet, 4 Refills, Maintenance, 02/13/21 16:15:00 EST, Tablet, [facility]/pharmacy #[id number], 175.26, cm, 02/10/21 10:55:00 EST, Height, 99, [...] 01/09/21 7:45:00 EDT, Route to Pharmacy Electronically, [facility]/pharmacy #[id number], Partial fill upon patient request... Start Date: [...]
--- OUTSIDE RECORDS SUMMARY | 2023-07-04 17:00 | XMS_ITS | Continuity of Care Document ---
Author Organization [facility] Address [address] [place] [address]- Care Team Providers Care Supervisor Drapery Hanging Name Role Phone Raya LAYTON, Mary Arthur Primary Care Physician [place] [facility] [place]26/20 - 12/26/20 [facility] [address] [place] [address]- [place] Allergies, Adverse Reactions, Alerts Substance Reaction [...] Refills, Maintenance, 02/05/20 8:17:00 EST, [place], [id number], Partial fill upon patient request, 174, cm, 02/05/20 7:47:00 EST, Height, 89.1, kg, 01/12/19 19:27:00 EDT, Dry... Start Date: 02/05/20 Stop Date: 07/04/20 Status: Ordered Centrum By Mouth, Daily, 0 Refills, Maintenance, 11/13/19 8:20:00 EDT Start Date: 11/13/19 Status: Ordered levothyroxine 0.025 mg oral tablet 1 tablet = 25 mcg, By Mouth, Daily, # 90 tablet, 0 Refills, Maintenance, 11/21/20 7:39:00 EDT, Tablet, [facility]/pharmacy #[id number], 174, cm, 11/20/20 7:16:00 EDT, [...]
--- OUTSIDE RECORDS SUMMARY | 2023-07-04 17:00 | XMS_ITS | Continuity of Care Document ---
Author Organization [facility] Address [address] [place] [address]- Care Team Providers Care Turf Sales Person Name Role Phone Raya LAYTON, Mary Arthur Primary Care Physician Encounter [facility] Date(s): 04/11/21 - 05/11/[address] [address]- Allergies, Adverse Reactions, Alerts Substance Reaction Severity [...] Refills, Maintenance, 02/05/20 8:17:00 EST, [place], [id number], Partial fill upon patient request, 174, cm, 02/05/20 7:47:00 EST, Height, 89.1, kg, 01/12/19 19:27:00 EDT, Dry... Start Date: 02/05/20 Stop Date: 07/04/20 Status: Ordered Centrum By Mouth, Daily, 0 Refills, Maintenance, 11/13/19 8:20:00 EDT Start Date: 11/13/19 Status: Ordered levothyroxine 0.025 mg oral tablet 1 tablet = 25 mcg, By Mouth, Daily, # 90 tablet, 4 Refills, Maintenance, 02/13/21 16:15:00 EST, Tablet, [facility]/pharmacy #[id number], 175.26, cm, 02/10/21 10:55:00 [...] Refills, Maintenance, 04/20/21 10:35:00 EST, [place] Capsule, [facility]/pharmacy #[id number], Partial fill upon patient [...] 7:45:00 EDT, Route to Pharmacy Electronically, [facility]/pharmacy #[id number], Partial fill upon patient [...]
--- OUTSIDE RECORDS SUMMARY | 2023-07-04 17:00 | XMS_ITS | Continuity of Care Document ---
Author Organization [facility] ter Address [address] [place] [id number]- Care Team Providers Care Chemical Preparer Name Role Phone Raya LAYTON, Mary Arthur Primary Care Physician [place] [facility] [place] 12/09/[address] [address]- Discharge Disposition: A-D/C Home Attending Physician: Tico iBggs MD Admitting Physician: Tico Biggs MD Referring Physician: Tico Biggs MD Allergies, [...] Note: Declined 2Result Comment: [05/07/2015] [facility] acetaminophen 325 mg oral tablet 650 mg, Tablet, By Mouth, Every 6 hours, PRN for Pain , Mild, Routine, 12/09/20 8:27:00 EDT Start Date: 12/09/20 Stop Date: 12/09/20 Status: Discontinued CeleBREX 200 mg oral capsule 1 capsule = 200 mg, By Mouth, Daily, PRN for pain, # 30 capsule, 4 Refills, Maintenance, 02/05/20 8:17:00 EST, Capsule, [facility]/pharmacy #[id number], Partial fill upon patient request, [...] 0 Refills, Maintenance, 11/21/20 7:39:00 EDT, Tablet, [facility]/pharmacy #[id number], 174, cm, 11/20/20 7:16:00 EDT, [...] Date: 12/09/20 Stop Date: 12/16/20 Status: Ordered traMADol 50 mg oral tablet 2 tablet = 100 mg, By Mouth, Every 6 hours, PRN Pain , Moderate, for 7 days, May take 1-2 table my mouth every 6 hours PRN pain., # 56 tablet, 0 Refills, Acute 12/16/20 8:05:00 EDT, 12/09/20 8:05:00 EDT, Tablet, Partial fill upon patient request if t... Start Date: 12/09/20 Stop Date: 12/16/20 Status: Ordered Zofran 4 mg oral tablet 1 tablet = 4 mg, By Mouth, Every 8 hours, for 7 days, PRN Nausea/Vomiting, # 21 tablet, 0 Refills, Acute 12/16/20 8:49:00 EDT, 12/09/20 8:49:00 EDT, Tablet, Partial fill upon patient request if the prescription is for a schedule II opioid drug. Start Date: 12/09/20 Stop Date: 12/16/20 Status: Ordered Problem List Condition Effective Dates Status Health Status Inform ant Endometriosis(Confirmed) Active Heart murmur(Confirmed) Active Hypothyroidism(Confirmed) Active Lumbar degenerative disc disease(Confirmed) 11/30/91 Active Tubular adenoma of colon(Confirmed) 12/02/11 Active Vulvar vestibulitis(Confirmed) Active Results Radiology Reports * Exam Date Time Procedure Performing Provider Status 12/08/20 4:10 PM C-Arm < 1 Hour Carmen Witt; Auth (Verified) Notes: (C-Arm < 1 Hour) Reason For Exam: Radiculopathy, ACDF C5-C6; FT- 8 sec, TT- 35 min RESULT: C-Arm < 1 Hour Cervical Spine 3 Views or Less, C-Arm < 1 Hour Reason: Radiculopathy, ACDF C5-C6; FT- 8 sec, TT- 35 min COMPARISON: None. FINDINGS: Fluoroscopy support was provided. There was no radiologist in attendance. 3 fluoroscopic images were submitted. Status post anterior fusion of lower cervical spine (possiblyC5-C6) with intervertebral disc spacer in place. Technologist time: 35 minutes Fluoroscopy time: 8 seconds Cumulative dose: 1.24 mGy IMPRESSION: Fluoroscopy support was provided. Please refer to the operative note for surgical details. WSN: [id number] Ordering Physician: iTco Biggs Dictated By: Charlie Lemon MD Dictated Date/Time: 12/08/20 4:50 pm Reviewed By: Charlie Lemon MD Signed By: Charlie Lemon MD Signed Date/Time: 12/08/20 4:50 pm Transcribed By: FABIAN Transcribed Date/Time: 12/08/20 4:48 pm * Exam Date Time Procedure Performing Provider Status 12/08/20 4:10 PM Cervical Spine 3 Views or Less Carmen Witt; Lucas (Verified) Notes: (Cervical Spine 3 Views or Less) Reason For Exam: Radiculopathy, ACDF C5-C6; FT- 8 sec, TT- 35 min RESULT: Cervical Spine 3 Views or Less Cervical Spine 3 Views or Less, C-Arm < 1 Hour Reason: Radiculopathy, ACDF C5-C6; FT- 8 sec, TT- 35 min COMPARISON: None. FINDINGS: Fluoroscopy support was provided. There was no radiologist in attendance. 3 fluoroscopic images were submitted. Status post anterior fusion of lower cervical spine (possiblyC5-C6) with intervertebral disc spacer in place. Technologist time: 35 minutes Fluoroscopy time: 8 seconds Cumulative dose: 1.24 mGy IMPRESSION: Fluoroscopy support was provided. Please refer to the operative note for surgical details. WSN: [id number] Ordering Physician: Tico Biggs Dictated By: Charlie Lemon MD Dictated Date/Time: 12/08/20 4:50 pm Reviewed By: Charlie Lemon MD Signed By: Charlie Lemon MD Signed Date/Time: 12/08/20 4:50 pm Transcribed By: FABIAN Transcribed Date/Time: 12/08/20 4:48 pm Vital Signs Most recent to oldest [Reference Range]: 1 2 3 Height 175.26 cm (12/09/20 8:19 AM) 175.26 cm (12/09/20 3:25 AM) 175.26 cm (12/08/20 11:25 PM) Weight 99.0 kg (12/08/20 11:25 PM) Oxygen Saturation [94-100 %] 94 % (12/09/20 8:19 AM) 92 % *L* (12/09/20 3:25 AM) 93 % *L* (12/08/20 11:25 PM) Pulse Rate [55-90 bpm] 78 bpm (12/09/20 8:19 AM) 61 bpm (12/09/20 3:25 AM) 80 bpm (12/08/20 11:25 PM) Body Mass Index [18.5-24.99] 32.23 *>HHI* (12/08/20 11:25 PM) Blood Pressure [90-138/55-84 mm Hg] 122/64mm Hg (12/09/20 8:19 AM) 133/60mm Hg (12/09/20 3:25 AM) 132/85mm Hg (12/08/20 11:25 PM) Respiratory Rate [16-30 br/min] 18 br/min (12/09/20 9:22 AM) 18 br/min (12/09/20 8:19 AM) 20 br/min (12/09/20 3:25 AM) Temperature [96.8-100.4 DegF] 98.4 DegF (12/09/20 8:19 AM) 97.7 DegF (12/09/20 3:25 AM) 97.7 DegF (12/08/20 11:25 PM) Liters per Minute 2 L/min (12/08/20 5:45 PM) 4 L/min (12/08/20 5:30 PM) 4 L/min (12/08/20 4:45 PM) Mode of Delivery (Oxygen) Room air (12/09/20 8:19 AM) Room air (12/09/20 3:25 AM) Room air (12/08/20 11:25 PM) Blood pressure sites Arm, right (12/09/20 8:19 AM) Arm, right (12/09/20 3:25 AM) Arm, left (12/08/20 11:25 PM) Temperature Route Oral (12/09/20 8:19 AM) Oral (12/09/20 3:25 AM) Oral (12/08/20 11:25 PM) Dry Weight 99.0 kg (12/08/20 11:25 PM) 99.9 kg (12/08/20 1:31 PM) 99.55 kg (11/28/20 10:02 AM) Dry Weight Obtained Via Standing scale (12/08/20 1:31 PM) Social History Social History Type Response Smoking Status Never smoker entered on: 10/29/13 Sex
--- OUTSIDE RECORDS SUMMARY | 2023-07-04 17:00 | XMS_ITS | Continuity of Care Document ---
Author Organization [facility] Address [address] [place] [address]- Care Team Providers Care Machine Fastener Name Role Phone Raya LAYTON, Mary Arthur Primary Care Physician [place] [facility] [place]/20 [facility] [address] [place] [address]- Allergies, Adverse Reactions, Alerts Substance Reaction Severity [...] acel(Tdap) 12/11/14 Given Tetanus-Diphth Toxoids, Adult (oldterm) 08/26/05 G iven 1Admin Note: Declined 2Result Comment: [05/07/2015] [facility] CeleBREX 200 mg oral capsule 1 capsule = 200 mg, By Mouth, Daily, PRN for pain, # 30 capsule, 4 Refills, Maintenance, 02/05/20 8:17:00 EST, Capsule, [id number], Partial fill upon patient request, 174, cm, [...] 5 Refills, Maintenance, 11/13/19 14:24:00 EDT, Tablet, [facility]/pharmacy #[id number], 174.5, cm, 11/13/19 8:16:00 [...]
[2023-07-04] MEDS: Acetaminophen 325 MG TABLET 650 MG PO (17:18)
[2023-07-04 17:37] LABS: MANUAL DIFF FLAG NO
[2023-07-04 17:41] LABS: Basophils Percent Auto 0.5 % (0-2); Eosinophils Percent Auto 0.2 % (0-4); Hemoglobin 13.6 g/dl (12.0-16.0); Imm Gran Abs Auto 0.02 X10*3/uL (0.00-0.03); Imm Gran Pct Auto 0.3 % (0.0-0.4); Lymphocytes Absolute Auto 1.2 X10*3/uL (1.2-4.9); Lymphocytes Percent Auto 17.6 % (20-40); Mean Corpuscular HGB Conc 33.2 g/dl (31.0-35.0); Mean Corpuscular Hemoglobin 29.3 pg (27.0-33.0); Mean Corpuscular Volume 88.4 fL (80.0-98.0); Mean Platelet Volume 8.7 fL (9.4-12.3); Monocytes Absolute Auto 0.4 X10*3/uL (0.1-1.2); Monocytes Percent Auto 6.1 % (2-11); Neutrophils Percent Auto 75.3 % (45-73); Platelet Count 250 X10*3/uL (160-400); Red Blood Count 4.64 X10*6/uL (4.20-5.50); Red Cell Distribution Width 12.5 % (11.0-16.0); White Blood Count 6.6 X10*3/uL (4.8-10.8)
[2023-07-04 18:11] LABS: Alanine Aminotransferase 15 U/L (0-31); Albumin Level 4.3 g/dL (3.5-5.0); Alkaline Phosphatase 73 U/L (39-117); Anion Gap 12 (12-20); Aspartate Amino Transferase 26 U/L (5-31); Bilirubin Total 0.5 mg/dL (0.0-1.0); Blood Urea Nitrogen 14 mg/dL (9-16); Calcium 10.1 mg/dL (8.4-10.2); Carbon Dioxide 26 mmol/L (22-29); Chloride 107 mmol/L (96-108); Creatinine Clr Calc Pharmacy 90.2; Estimated Glomerular Filt Rate > 60; Glucose Random 104 mg/dL (60-115); Sodium 141 mmol/L (135-145); Total Protein 7.7 g/dL (6.5-8.0)
[2023-07-04 18:12] LABS: HCG Quantitative 6 mIU/mL
[2023-07-04] MEDS: iohexoL 350 MG/ML 100 ML INFUS..BTL IV (18:55)
[2023-07-04] MEDS: Cyclobenzaprine HCl 10 MG TABLET PO (19:24)
[2023-07-04 20:10] VITALS: BP 138/94; PULSE 74; RESP 17; TEMP 36.7; O2SAT 96
[2023-07-04 20:38] VITALS: BP 134/86; PULSE 81; RESP 18; TEMP 36.8; O2SAT 98
[2023-07-04] MEDS: Ketorolac Tromethamine 15 MG/ML VIAL IVPUSH (22:44)
[2023-07-04 22:47] VITALS: BP 134/86; PULSE 81; RESP 18; TEMP 36.8; O2SAT 98
== END 2023-07-04 22:49 | disposition home or self-care (01) ==
PROVIDERS: Registered Nurse Emergency; Emergency Provider Internal Medicine; PCP Nurse Practitioner Family
DX: S16.1XXA Strain of muscle, fascia and tendon at neck level, initial encounter (principal); M25.512 Pain in left shoulder; M25.532 Pain in left wrist; M54.50 Low back pain, unspecified; R10.9 Unspecified abdominal pain; V89.2XXA Person injured in unspecified motor-vehicle accident, traffic, initial encounter; Y93.9 Activity, unspecified; Y92.410 Unspecified street and highway as the place of occurrence of the external cause; Y99.9 Unspecified external cause status; Z98.1 Arthrodesis status
CPT/HCPCS: 36415; 70450; 72125; 73030; 73100; 74177; 80053; 84702; 85025; 96374; 99284; J1885; Q9967